=== PATIENT | female | born 1955 | race Caucasian/White ===

== ENCOUNTER 2019-09-13 13:01 | Outpatient (CLI) | payer MEDICARE, OTHER, SELFPAY ==
--- NOTE | ~2019-09-13 | CT_ITS ---
EXAMINATION: CT hip LT wo con DATE: 09/13/2019 13:22 INDICATION: Left hip pain TECHNIQUE: High resolution computed tomography (CT) of the left hip was performed without intravenous contrast. Additional sagittal and coronal reconstructions were performed. Automated exposure control and iterative reconstruction technique were employed. The dose-length product was 561.17 mGy-cm. COMPARISON: Hip radiographs dated between 05/31/2019 and 08/24/2018 FINDINGS: Again seen are 3 lag screws spanning a nondisplaced subcapital fracture of the proximal left femur wh ich is in near-anatomic alignment. Screws appear intact and there is no surrounding lucency to sugges t loosening or infection. No acute fracture. Left hip joint space appears relatively preserved with n o evident left hip joint effusion. Mild subcutaneous scarring lateral to the proximal femur. Surround ing soft tissues are otherwise unremarkable with no evident bursal fluid collections to suggest bursi tis. The uterus is not identified and has likely been surgically resected. Suture line in the left ad nexa suggesting associated left oophorectomy. A small thickening along the sigmoid colon which is lik shar due to decompressed state with no surrounding inflammatory stranding to suggest colitis. Partiall y decompressed bladder is normal. No pathologically enlarged left pelvic or inguinal lymphadenopathy. IMPRESSION: 1. Lag screw fixation of a healed nondisplaced left femoral subcapital fracture which is in near-omid omic alignment with normal left hip joint space, no joint effusion or evident acute osseous abnormali ty. Reviewed, dictated and finalized at location A. ITIAN CHIEF IMPRESSION: 1. Lag screw fixation of a healed nondisplaced left femoral subcapital fracture which is in near-anatomic alignment with normal left hip joint space, no joint effusion or evident acute osseous abnormality.
[2019-09-13 14:24] LABS: Thyroid Stimulating Hormone 0.37 uIU/mL (0.36-3.74)
[2019-09-15 20:53] LABS: Fructosamine 310 umol/L (205-285)
== END 2019-09-13 13:02 | disposition home or self-care (01) ==
PROVIDERS: PCP Internal Medicine; Visit Provider Orthopaedic Surgery
DX: E03.8 Other specified hypothyroidism (principal); E10.65 Type 1 diabetes mellitus with hyperglycemia; M25.552 Pain in left hip
CPT/HCPCS: 36415; 73700; 82985; 84439; 84443

== ENCOUNTER 2019-09-20 09:05 | Outpatient (CLI) | payer MEDICARE, OTHER, SELFPAY ==
--- NOTE | ~2019-09-20 | XR_ITS ---
EXAMINATION: XR hip LT min 2V DATE: 09/20/2019 09:28 INDICATION: Left hip pain. TECHNIQUE: 3 views of left hip were obtained. COMPARISON: Left hip radiographs 05/31/2019, 07/27/2018 FINDINGS: There is a healed transcervical fracture of left femoral neck with internal fixation with 3 lag screws. No acute fracture. There is mild left hip osteoarthritis. There is a staple line in left pelvis. IMPRESSION: 1. Mild left hip osteoarthritis. Reviewed, dictated and finalized at location A. FITS PROCESSOR
== END 2019-09-20 09:06 | disposition home or self-care (01) ==
PROVIDERS: PCP Internal Medicine; Visit Provider Orthopaedic Surgery
DX: Z47.89 Encounter for other orthopedic aftercare (principal)
CPT/HCPCS: 73502

== ENCOUNTER 2019-10-04 12:51 | Outpatient (CLI) | payer MEDICARE, OTHER, SELFPAY ==
--- NOTE | ~2019-10-04 | XR_ITS ---
EXAMINATION: XR lg joint inject/asp w image DATE: 10/04/2019 13:40 INDICATION: Left hip osteoarthritis presenting with left hip pain TECHNIQUE: A time-out was performed to verify the patient's name, date of , and procedure to b e performed. The procedure including the risks, benefits, and alternatives was discussed with the pat ient. Risks discussed included bleeding and infection. The patient understood the risks and agreed to proceed. The skin overlying the left hip joint was prepped and draped in usual sterile fashion. An esthetic was administered with 1% lidocaine subcutaneously. A 22 G needle was advanced under fluoros copic guidance into the joint. Injection of 0.6 mL of Omnipaque 240 confirmed intra-articular positi on of the needle. Subsequently millimeter of a 2:1 mixture of 0.5% Marcaine: 80 mg/mL Depo-Medrol fo r a total dosage of 80 mg Depo-Medrol was instilled. Washout of contrast was seen confirming intra-ar ticular administration. The needle was removed and the entry site was cleaned and dressed. There wer e no immediate complications. Fluoroscopy exposure time was 0.1 minutes. The total number of images w as 2. FINDINGS: Real-time fluoroscopy demonstrates the needle in the left hip joint. Patient's pain prior t o procedure:10/10. Patient's pain following the procedure: 0/10. 3 lag screws are seen for fixation of a prior left femoral subcapital fracture which is in near-anatomic alignment. IMPRESSION: 1. Left hip injection of local anesthetic and steroid with decrease in the patient's presenting pain. Reviewed, dictated and finalized at location A. IMPRESSION: 1. Left hip injection of local anesthetic and steroid with decrease in the kenny ent's presenting pain.
== END 2019-10-04 12:52 | disposition home or self-care (01) ==
PROVIDERS: PCP Internal Medicine; Visit Provider Orthopaedic Surgery
DX: M16.12 Unilateral primary osteoarthritis, left hip (principal)
CPT/HCPCS: 20610; 77002; J1040; Q9966

== ENCOUNTER 2019-10-06 10:55 | Outpatient (CLI) | payer MEDICARE, OTHER, SELFPAY ==
--- NOTE | ~2019-10-06 | XR_ITS ---
EXAMINATION: XR chest 2V DATE: 10/06/2019 11:30 INDICATION: Lower respiratory tract infection. Cough. Shortness of breath, weakness and lethargy. TECHNIQUE: PA and lateral views of the chest were obtained. COMPARISON: Chest radiograph dated 07/06/2018 FINDINGS: The lungs remain clear with no focal airspace opacities, pulmonary edema, pleural effusion or pneumot horax. The cardiomediastinal silhouette is normal. Minimal peripheral calcification along bilateral b reast implants. Atherosclerotic calcification is along the abdominal aorta. IMPRESSION: 1. No acute cardiopulmonary disease. Reviewed, dictated and finalized at location A.
== END 2019-10-06 10:56 | disposition home or self-care (01) ==
LOC: CHSIMG 11:07
PROVIDERS: PCP Internal Medicine
DX: J22 Unspecified acute lower respiratory infection (principal)
CPT/HCPCS: 71046

== ENCOUNTER 2019-10-22 14:13 | Outpatient (CLI) | payer MEDICARE, SELFPAY ==
[2019-10-22 14:43] LABS: Basophils Absolute Auto 0.04 K/mm3 (0.00-0.10); Basophils Percent Auto 0.6 % (0.0-1.0); Eosinophils Absolute Auto 0.21 K/mm3 (0.02-0.50); Eosinophils Percent Auto 3.4 % (1.0-6.0); Hematocrit 43.5 % (35.0-49.0); Hemoglobin 13.8 g/dL (12.0-15.0); Immature Granulocyte Absolute 0.02 K/mm3 (0.00-0.00); Immature Granulocyte Percent A 0.3 % (0.0-0.0); Lymphocytes Absolute Auto 0.72 K/mm3 (1.10-4.50); Lymphocytes Percent Auto 11.6 % (18.0-42.0); Mean Corpuscular HGB Conc 31.7 g/dL (32.0-36.0); Mean Corpuscular Hemoglobin 29.4 pg (27.0-31.0); Mean Corpuscular Volume 92.6 fL (78.0-102.0); Monocytes Absolute Auto 0.28 K/mm3 (0.10-0.90); Monocytes Percent Auto 4.5 % (2.0-11.0); Neutrophils Absolute Auto 4.9 K/mm3 (1.7-7.2); Neutrophils Percent Auto 79.6 % (50.0-70.0); Platelet Count Result 231 K/mm3 (150-420); Red Cell Distribution Width 13.2 % (11.6-14.4); White Blood Count 6.2 K/mm3 (4.8-10.8)
[2019-10-22 14:56] LABS: Add Urine Microscopic? YES; Appearance Urine Clear (Clear); Bilirubin Urine 1+ (Negative); Blood Urine Negative (Negative); Color Urine Yellow (Yellow); Glucose Urine UA 1+ (Negative); Ketones Urine Trace (Negative); Leukocyte Esterase Ur Negative LEU/UL (Negative); Nitrate Urine Negative (Negative); Protein Urine 2+ (Negative); Specific Grav Ur >= 1.030 (1.010-1.020); Urobilinogen Urine 0.2 mg/dL (0.2-1.0); pH Urine 5.5 (5.0-8.0)
[2019-10-22 15:06] LABS: RBC Urine 0-2 /hpf (0-2)
[2019-10-22 15:07] LABS: Bacteria Urine 4+ /hpf; Squamous Epithelial Cell Urine Many /hpf (Few)
[2019-10-22 15:44] LABS: Alanine Aminotransferase 40 U/L (14-59); Albumin Level 3.6 g/dL (3.4-5.0); Alkaline Phosphatase 66 U/L (46-116); Anion Gap 12.6 mmol/L (7-16); Aspartate Amino Transferase 46 U/L (15-37); Bilirubin,Total 0.3 mg/dL (0.00-1.00); Blood Urea Nitrogen 15 mg/dL (7-18); Carbon Dioxide 30 mmol/L (21-32); Chloride 105 mmol/L (98-108); Estimated Glomerular Filt Rate 53; Glucose 209 mg/dL (70-99); Osmolality Calculated 302 mOsm/kg (285-295); Potassium 4.6 mmol/L (3.5-5.1); Sodium 143 mmol/L (136-145); Total Protein 6.6 g/dL (6.4-8.2)
[2019-10-22 15:45] LABS: CRP < 0.0 mg/dL (0.0-0.9)
[2019-10-22 15:50] LABS: Erythrocyte Sedimentation Rate 15 mm/hr (0-20)
[2019-10-25 10:25] LABS: Complement C3 124 mg/dL (83-193)
== END 2019-10-22 14:14 | disposition home or self-care (01) ==
PROVIDERS: PCP Internal Medicine
DX: M19.90 Unspecified osteoarthritis, unspecified site (principal); Z79.899 Other long term (current) drug therapy
CPT/HCPCS: 36415; 80053; 81001; 83516; 85025; 85652; 86140; 86160; 86225

== ENCOUNTER 2019-12-24 09:38 | Outpatient (CLI) | payer MEDICARE, SELFPAY ==
[2019-12-24 09:52] LABS: Basophils Absolute Auto 0.06 K/mm3 (0.00-0.10); Basophils Percent Auto 1.4 % (0.0-1.0); Eosinophils Absolute Auto 0.05 K/mm3 (0.02-0.50); Eosinophils Percent Auto 1.2 % (1.0-6.0); Hematocrit 40.3 % (35.0-49.0); Hemoglobin 12.7 g/dL (12.0-15.0); Immature Granulocyte Absolute 0.01 K/mm3 (0.00-0.00); Immature Granulocyte Percent A 0.2 % (0.0-0.0); Lymphocytes Absolute Auto 1.27 K/mm3 (1.10-4.50); Mean Corpuscular HGB Conc 31.5 g/dL (32.0-36.0); Mean Corpuscular Hemoglobin 29.1 pg (27.0-31.0); Mean Corpuscular Volume 92.2 fL (78.0-102.0); Mean Platelet Volume 11.1 fl (9.2-11.8); Monocytes Absolute Auto 0.62 K/mm3 (0.10-0.90); Monocytes Percent Auto 14.6 % (2.0-11.0); Neutrophils Absolute Auto 2.2 K/mm3 (1.7-7.2); Neutrophils Percent Auto 52.6 % (50.0-70.0); Platelet Count Result 251 K/mm3 (150-420); Red Blood Count 4.37 M/mm3 (4.20-5.40); Red Cell Distribution Width 14.1 % (11.6-14.4); White Blood Count 4.2 K/mm3 (4.8-10.8)
[2019-12-24 11:08] LABS: Cholesterol 136 mg/dL (0-200); Ferritin 16 ng/mL (8-252); Free T4 Free Thyroxine 1.13 ng/dL (0.76-1.46); HDL Direct 82 mg/dL (40-60); LDL Cholesterol Calculated 43 mg/dL (<130); Thyroid Stimulating Hormone 0.09 uIU/mL (0.36-3.74); Triglycerides 55 mg/dL (0-150)
== END 2019-12-24 09:39 | disposition home or self-care (01) ==
LOC: CHSLAB 09:42
PROVIDERS: PCP Internal Medicine; Visit Provider Internal Medicine
DX: D50.8 Other iron deficiency anemias (principal); E10.65 Type 1 diabetes mellitus with hyperglycemia; E03.8 Other specified hypothyroidism
CPT/HCPCS: 36415; 80061; 82728; 82985; 84439; 84443; 85025

== ENCOUNTER 2020-03-16 13:34 | Outpatient (CLI) | payer MEDICARE, SELFPAY ==
[2020-03-16 14:06] LABS: Basophils Absolute Auto 0.07 K/mm3 (0.00-0.10); Basophils Percent Auto 1.7 % (0.0-1.0); Eosinophils Absolute Auto 0.03 K/mm3 (0.02-0.50); Eosinophils Percent Auto 0.7 % (1.0-6.0); Hematocrit 41.3 % (35.0-49.0); Hemoglobin 12.8 g/dL (12.0-15.0); Immature Granulocyte Absolute 0.02 K/mm3 (0.00-0.00); Immature Granulocyte Percent A 0.5 % (0.0-0.0); Lymphocytes Percent Auto 27.4 % (18.0-42.0); Mean Corpuscular Volume 93.4 fL (78.0-102.0); Mean Platelet Volume 11.6 fl (9.2-11.8); Monocytes Absolute Auto 0.46 K/mm3 (0.10-0.90); Monocytes Percent Auto 11.4 % (2.0-11.0); Neutrophils Absolute Auto 2.3 K/mm3 (1.7-7.2); Neutrophils Percent Auto 58.3 % (50.0-70.0); Platelet Count Result 244 K/mm3 (150-420); Red Blood Count 4.42 M/mm3 (4.20-5.40); Red Cell Distribution Width 13.4 % (11.6-14.4)
[2020-03-16 14:42] LABS: Alanine Aminotransferase 35 U/L (14-59); Albumin Level 3.5 g/dL (3.4-5.0); Alkaline Phosphatase 73 U/L (46-116); Anion Gap 8 mmol/L (8-16); Aspartate Amino Transferase 41 U/L (15-37); Bilirubin,Total 0.3 mg/dL (0.00-1.00); Blood Urea Nitrogen 14 mg/dL (7-18); Calcium 8.5 mg/dL (8.5-10.1); Carbon Dioxide 27 mmol/L (21-32); Chloride 106 mmol/L (98-108); Estimated Glomerular Filt Rate > 60; Free T4 Free Thyroxine 1.14 ng/dL (0.76-1.46); Glucose 198 mg/dL (70-99); Osmolality Calculated 298 mOsm/kg (285-295); Potassium 4.8 mmol/L (3.5-5.1); Sodium 141 mmol/L (136-145); Thyroid Stimulating Hormone 0.15 uIU/mL (0.36-3.74); Total Protein 6.8 g/dL (6.4-8.2)
[2020-03-16 14:51] LABS: CRP < 0.2 mg/dL (0.0-0.9)
[2020-03-16 15:08] LABS: Erythrocyte Sedimentation Rate 20 mm/hr (0-20)
[2020-03-19 19:34] LABS: Fructosamine 308 umol/L (205-285)
== END 2020-03-16 13:35 | disposition home or self-care (01) ==
PROVIDERS: PCP Internal Medicine; Visit Provider Internal Medicine
DX: M19.90 Unspecified osteoarthritis, unspecified site (principal); Z79.899 Other long term (current) drug therapy; E10.649 Type 1 diabetes mellitus with hypoglycemia without coma
CPT/HCPCS: 36415; 80053; 82985; 84439; 84443; 85025; 85652; 86140

== ENCOUNTER 2020-06-14 12:52 | Outpatient (CLI) | payer MEDICARE, OTHER, SELFPAY ==
--- NOTE | ~2020-06-14 | XR_ITS ---
CORRECTED REPORT order correction 06/19/2020 [facility] XR lg joint inject/aspiration w image DATE: 06/14/2020 14:40 INDICATION: Left hip pain, arthritis. TECHNIQUE: The purpose of the procedure, technique and potential complications were discussed with the patient. The patient verbalized understanding and gave consent. Timeout procedure was performed. The skin over the anterolateral aspect of the proximal left thigh was prepared with sterile solution. Sterile drape was applied. 1% lidocaine local anesthetic was administered to the skin and underlying subcutaneous tissues. A 20-gauge spinal needle was introduced into the right hip joint space with fluoroscopic guidance. Test injection of Omnipaque 240 contrast material revealed intra-articular position of the needle tip at the right hip joint. Subsequently, 2 cc of 0.5% Marcaine and 80 mg Depo-Medrol was injected uneventfully into the right hip joint. The patient tolerated the procedure well, without apparent complication. IMPRESSION: Fluoroscopically guided left hip intra-articular injection of 2 cc 0.5% Marcaine and 80 mg Depo-Medrol Reviewed, dictated and finalized at Location A. Reviewed, dictated and finalized at location A. IVES SPECIALIST JOSE
== END 2020-06-14 12:53 | disposition home or self-care (01) ==
LOC: CHSIMG 12:54
PROVIDERS: PCP Internal Medicine; Visit Provider Orthopaedic Surgery
DX: M16.12 Unilateral primary osteoarthritis, left hip (principal)
CPT/HCPCS: 20610; 77002; J1030; Q9965

== ENCOUNTER 2020-07-18 11:47 | Outpatient (CLI) | payer MEDICARE, SELFPAY ==
[2020-07-18 12:18] LABS: Add Urine Microscopic? YES; Appearance Urine Clear (Clear); Bilirubin Urine Negative (Negative); Blood Urine Negative (Negative); Color Urine Yellow (Yellow); Glucose Urine UA 3+ (Negative); Ketones Urine Negative (Negative); Leukocyte Esterase Ur Negative LEU/UL (Negative); Nitrate Urine Negative (Negative); Protein Urine Negative (Negative); Specific Grav Ur >= 1.030 (1.010-1.020); Urobilinogen Urine 0.2 mg/dL (0.2-1.0); pH Urine 5.5 (5.0-8.0)
[2020-07-18 12:25] LABS: Bacteria Urine 2+ /hpf; Mucus Urine Few /lpf; RBC Urine 0-2 /hpf (0-2); Squamous Epithelial Cell Urine Moderate /hpf (Few); WBC Urine 0-3 /hpf (0-3)
[2020-07-18 12:48] LABS: Creatinine Urine 149.54 mg/dL (40-278); MALB Creatinine Ratio 8.6 mg/g (0-30); Microalbumin Urine Random < 13.0 mg/L
[2020-07-18 13:23] LABS: Free T4 Free Thyroxine 1.07 ng/dL (0.76-1.46); Thyroid Stimulating Hormone 0.09 uIU/mL (0.36-3.74); Vitamin B12 327 pg/mL (193-986)
[2020-07-20 13:45] LABS: Complement C3 121 mg/dL (83-193)
[2020-07-20 14:04] LABS: RPR Screen Non-Reactive (Non-Reactive)
[2020-07-22 01:12] LABS: Albumin 4.1 g/dL (3.8-4.8); Alpha 1 Globulin 0.3 g/dL (0.2-0.3); Alpha 2 Globulin 0.7 g/dL (0.5-0.9); Beta 1 Globulin 0.6 g/dL (0.4-0.6)
[2020-07-22 10:20] LABS: Vitamin B1 <6 nmol/L (8-30)
[2020-07-22 12:46] LABS: Fructosamine 312 umol/L (205-285)
[2020-07-25 07:01] LABS: Creatinine, Random Urine 128 mg/dL (20-275); Total Protein/Creatinine Ratio 109 mg/g creat (21-161)
[2020-07-25 09:22] LABS: NIL 0.02; Quantiferon TB Plus, 1T Negative
== END 2020-07-18 11:48 | disposition home or self-care (01) ==
PROVIDERS: PCP Internal Medicine
DX: M19.90 Unspecified osteoarthritis, unspecified site (principal); Z79.899 Other long term (current) drug therapy; R61 Generalized hyperhidrosis; E03.8 Other specified hypothyroidism; E10.40 Type 1 diabetes mellitus with diabetic neuropathy, unspecified
CPT/HCPCS: 36415; 81001; 82043; 82570; 82607; 82985; 84155; 84156; 84165; 84166; 84425; 84439; 84443; 86160; 86225; 86335; 86480; 86592

== ENCOUNTER 2020-09-18 08:13 | Outpatient (CLI) | payer MEDICARE, OTHER, SELFPAY ==
--- NOTE | ~2020-09-18 | XR_ITS ---
EXAMINATION: XR hip LT min 2V DATE: 09/18/2020 08:58 INDICATION: Several months of left hip pain TECHNIQUE: Anteroposterior , frog leg and cross-table lateral views of the left hip were obtained. COMPARISON: Left hip radiographs dated 09/20/[address] dated 09/13/2019 FINDINGS: Progressive healing of a transcervical fracture of the proximal left femur which remains fixed with 3 cannulated lag screws with remodeling of the inferior cortex and near complete resolution of the the prior mild residual linear lucency along the fracture plane. Alignment remains essentially anatomic. No acute fractures identified. Minimal left hip osteoarthritis. Postoperative changes with suture li chinmay in the left and right hemipelvis. Multiple phleboliths in the pelvis. Atherosclerotic calcific a cyst along the proximal left thigh. Small heterotopic ossicle at the left buttock. Partially visualiz ed left common iliac artery stent. IMPRESSION: 1. Chronic healed transcervical fracture of the proximal femur with lag screw fixation. No acute osse ous abnormality. 2. Minimal left hip osteoarthritis. Reviewed, dictated and finalized at location B. S OPERATIONS SPECIALIST IMPRESSION: 1. Chronic healed transcervical fracture of the proximal femur with lag screw f ixation. No acute osseous abnormality. 2. Minimal left hip osteoarthritis.
== END 2020-09-18 08:14 | disposition home or self-care (01) ==
PROVIDERS: PCP Internal Medicine; Visit Provider Orthopaedic Surgery
DX: M25.552 Pain in left hip (principal)
CPT/HCPCS: 73502

== ENCOUNTER 2020-10-27 13:30 | Outpatient (CLI) | payer MEDICARE, OTHER, SELFPAY ==
--- NOTE | ~2020-10-27 | XR_ITS ---
EXAMINATION: XR lg joint inject/asp w image DATE: 10/27/2020 14:08 INDICATION: Left hip arthritis. TECHNIQUE: A time-out was performed to verify the patient's name, date of , and procedure to b e performed. The procedure including the risks, benefits, and alternatives was discussed with the pat ient. Risks discussed included bleeding and infection. The patient understood the risks and agreed to proceed. The skin overlying the left hip joint was prepped and draped in usual sterile fashion. An esthetic was administered with 1% lidocaine subcutaneously. A 22 G needle was advanced under fluoros copic guidance into the joint. Injection of 1 mL of Omnipaque 240 confirmed intra-articular position of the needle. Subsequently, injectate consisting of 2 mL 0.5% bupivacaine and 1 mL 80 mg/L Depo-Me drol was instilled. The needle was removed and the entry site was cleaned and dressed. There were n o immediate complications. Fluoroscopy exposure time was 0.1 minutes. The total number of images was 2. FINDINGS: Real-time fluoroscopy demonstrates the needle in the left hip joint. There are 3 lag screws in the proximal femur. Patient's pain prior to procedure:04/29. Patient's pain following the proced ure: 07/30. IMPRESSION: 1. Fluoroscopy guided left hip joint injection of local anesthetic and steroid with decrease in the p atient's presenting pain. Reviewed, dictated and finalized at location A. IMPRESSION: 1. Fluoroscopy guided left hip joint injection of local anesthetic and steroid with decrease in the patient's presenting pain.
== END 2020-10-27 13:31 | disposition home or self-care (01) ==
LOC: ANHIMG 13:36
PROVIDERS: PCP Internal Medicine; Visit Provider Orthopaedic Surgery
DX: M16.12 Unilateral primary osteoarthritis, left hip (principal)
CPT/HCPCS: 20610; 77002; J1040; Q9966

== ENCOUNTER 2020-11-20 10:22 | Outpatient (CLI) | payer MEDICARE, OTHER, SELFPAY ==
--- NOTE | ~2020-11-20 | MM_ITS ---
EXAMINATION: MM scrn fernando implant BI w ольга HISTORY: Screening mammogram TECHNIQUE: Craniocaudal and mediolateral oblique 3-D tomosynthesis images with implant displacement a nd synthetic 2-D images were generated. Craniocaudal and mediolateral oblique views of the breasts wi thout implant displacement were obtained using full field digital mammography. CAD analysis was submi tted and interpreted. COMPARISON: Comparison to multiple prior studies sequentially, with oldest reviewed study dated 11/2011. BREAST PARENCHYMAL COMPOSITION: The breasts are extremely dense, which lowers the sensitivity of mamm ography. FINDINGS: There are bilateral subpectoral saline implants. There is no evidence of suspicious mass, c alcification, or architectural distortion to suggest malignancy in either breast. There has been no s uspicious interval change. IMPRESSION: 1. No mammographic evidence of malignancy. 2. Recommend routine screening mammography in one year. BI-RADS Category 1: Negative Reviewed, dictated and finalized at location A.
== END 2020-11-20 10:23 | disposition home or self-care (01) ==
LOC: ANHIMG 10:26
PROVIDERS: Family Provider Internal Medicine Endocrinology, Diabetes & Metabolism; PCP Internal Medicine; Visit Provider Obstetrics & Gynecology
DX: Z12.31 Encounter for screening mammogram for malignant neoplasm of breast (principal)
CPT/HCPCS: 77063; 77067

== ENCOUNTER 2020-12-27 10:58 | Outpatient (CLI) | payer MEDICARE, SELFPAY ==
[2020-12-27 11:38] LABS: Appearance Urine Sl Cloudy (Clear); Bilirubin Urine Negative (Negative); Blood Urine Negative (Negative); Glucose Urine UA 1+ (Negative); Ketones Urine Negative (Negative); Leukocyte Esterase Ur Negative LEU/UL (Negative); Nitrate Urine Negative (Negative); Protein Urine Negative (Negative); Specific Grav Ur >= 1.030 (1.010-1.020); Urobilinogen Urine 0.2 mg/dL (0.2-1.0); pH Urine 5.5 (5.0-8.0)
[2020-12-27 11:43] LABS: Add Urine Microscopic? YES; Bacteria Urine 2+ /hpf; Color Urine Light Yellow (Yellow); Mucus Urine Few /lpf; RBC Urine None seen /hpf (0-2); Squamous Epithelial Cell Urine Few /hpf (Few); WBC Urine None seen /hpf (0-3)
[2020-12-27 11:53] LABS: Hemoglobin A1C 7.5 % (<5.7)
[2020-12-27 11:54] LABS: MALB Creatinine Ratio 9.6 mg/g (0-30); Microalbumin Urine Random < 13.0 mg/L
[2020-12-27 12:31] LABS: Alanine Aminotransferase 31 U/L (14-59); Albumin Level 3.5 g/dL (3.4-5.0); Alkaline Phosphatase 67 U/L (46-116); Anion Gap 8 mmol/L (8-16); Aspartate Amino Transferase 40 U/L (15-37); Bilirubin,Total 0.4 mg/dL (0.00-1.00); Blood Urea Nitrogen 18 mg/dL (7-18); Calcium 8.9 mg/dL (8.5-10.1); Carbon Dioxide 30 mmol/L (21-32); Chloride 106 mmol/L (98-108); Cholesterol 132 mg/dL (0-200); Estimated Glomerular Filt Rate 55; Free T4 Free Thyroxine 0.98 ng/dL (0.76-1.46); Glucose 151 mg/dL (70-99); HDL Direct 78 mg/dL (40-60); LDL Cholesterol Calculated 43 mg/dL (<130); Osmolality Calculated 302 mOsm/kg (285-295); Potassium 5.1 mmol/L (3.5-5.1); Sodium 144 mmol/L (136-145); Total Protein 6.5 g/dL (6.4-8.2); Triglycerides 56 mg/dL (0-150)
[2020-12-29 13:44] LABS: Vitamin D 25 Hydroxy 42 ng/mL (30-100)
[2021-01-02 06:46] LABS: Fructosamine 309 umol/L (205-285)
[2021-01-03 12:24] LABS: Vitamin B1 318 nmol/L (8-30)
== END 2020-12-27 10:59 | disposition home or self-care (01) ==
LOC: CHSLAB 11:01
PROVIDERS: PCP Internal Medicine; Visit Provider Internal Medicine
DX: E03.8 Other specified hypothyroidism (principal); E10.65 Type 1 diabetes mellitus with hyperglycemia; D50.9 Iron deficiency anemia, unspecified; M85.80 Other specified disorders of bone density and structure, unspecified site
CPT/HCPCS: 36415; 80053; 80061; 81001; 82043; 82306; 82985; 83036; 84425; 84439; 84443

== ENCOUNTER 2021-01-17 11:01 | Outpatient (RCR) | payer MEDICARE, OTHER, SELFPAY ==
--- NOTE | 2021-01-17 11:49 | PTOPEVAL ---
Thank you for referring Bettye Thrasher to [facility].? The patient is scheduled to be seen for therapy? __3__x/week for 12 visits. Please review, sign, date and return this plan of care DANIELE. I agree with and certify that the following plan of care is medically necessary. Referring Physician Date Admitting Provider: Attending Provider: MARY LOVE Referring Provider: *PT Outpatient Evaluation Start: 01/17/21 11:00 Freq: Status: Active Protocol: Document 01/17/21 11:00 DREW (Rec: 01/17/21 11:48 DREW [email or web address]) Therapy Assessment Status Assessment Status Assessment Status Evaluation Evaluation Information Problem Diagnosis impaired balance, unsteady gait Onset 07/21/20 Subjective Information Pt. reports that she has Query Text:As Reported By Patient/ noticed difficulty with Family maintaining her balance as of recently. She states that she notices herself falling to the left mostly. She states that she has fallen 3x in the past 6 months. She recalls tripping up her steps and she has stumbled over her dog. She states that her vision seems to be off and has difficulty judging distance. She reports that her goal for therapy is to improve her balance. Prior Level of Function Activity Level (Last 3 Months) Occupation disabled Hand Dominance Right Activity of Daily Living Ability Independent Indoor/Home Mobility Independent Community Mobility Independent Stairs Ability Independent Functional Cognition (Planning, Shopping Independent , Taking Medications) Cooking Yes Cleaning Yes Laundry Yes Shopping Yes Driving Yes Pain Assessment Timing of Pain Assessment Timing of Pain Assessment Pre-Treatment Pain Scale Pain Scale Used Numeric (1 - 10) Self Report Pain Assessment Left Hip(s) Reported Pain Level 3 Pain Description Aching Other Pain Aggravating Factors laying on the left hip Pain Score Pain Score 3: Self Report Interventions Used Interventions Used By Clinicians Activity or ADL's,Exercise Lower Extremity Muscle Strength Testing General Lower Extremity Strength Gross Lower Extremity Streng
--- NOTE | 2021-02-26 13:53 | PTOPEVAL ---
Thank you for referring Bettye Thrasher to [facility] The patient is scheduled to be seen for therapy? __2__x/week for 4 visits. Please review, sign, date and return this plan of care DANIELE. I agree with and certify that the following plan of care is medically necessary. Referring Physician Date Admitting Provider: Attending Provider: MARY LOVE Referring Provider: *PT Outpatient Evaluation Start: 01/17/21 11:00 Freq: Status: Active Protocol: Document 02/26/21 13:05 DREW (Rec: 02/26/21 13:52 DREW [id number]) Outpatient Past Medical History Neurological History Hx Other Neurological Disorders Yes: DIABETIC NEUROPATHY Cardiovascular History Hx Hypertension Yes Respiratory History Hx Respiratory Disorders No Significant History Gastrointestinal History Hx Gastrointestinal Disorders No Significant History Genitourinary History Hx Genitourinary Disorders No Significant History Musculoskeletal History Hx Fractures Yes: S/O LT HIP FX 2018 Hematological History Hx Hematological Disorders No Significant History Endocrine History Hx Diabetes Yes Hx Insulin Pump Yes Hx Systemic Lupus Erythematosus Yes: POSSIBLE, RAYNAUD'S SJOGREN'S Hx Other Endocrine Disorders Yes: AUTOIMMUNE THYROIDITIS HEENT History Hx Glaucoma Yes Hx Dental Problems Yes: ADENTUALOUS Hx Other HEENT Disorders Yes: DIABETIC RETINOPATHY Integumentary History Hx Skin Disorders No Significant History Reproductive History Hx Reproductive Disorders No Significant History Psychosocial History Hx Psychiatric Disorders No Significant History Pain History Has Past Pain Affected Your Daily Life Yes: LT HIP PAIN Anesthesia History Hx Anesthesia Reactions No Significant History Evaluation Information Problem Subjective Information Pt. reports that she had pins Query Text:As Reported By Patient/ removed from her hip 1 07/22 Family weeks ago. She skipped last week of rehab due to the procedure. She reports she has been doing exercise at home. She reports she still notes balance issues, but has noticed less episodes of LOB. Pt. request to continue with PT to improve her strength. Pain Assessment Timing of Pain Assessment Timing of Pain Assessment Pre-Treatment Pain Scale Pain Scale Used Numeric (1 - 10) Self Report Pain Assessment Left Hip(s) Reported Pain Level 3 Pain Score Pain Score 3: Self Report Interventions Used Interventions Used
== END 2021-03-12 14:52 | disposition home or self-care (01) ==
LOC: CHSPT 11:01
PROVIDERS: PCP Internal Medicine
DX: R42 Dizziness and giddiness (principal)
CPT/HCPCS: 97110; 97112; 97161; 97530

== ENCOUNTER 2021-02-15 01:17 | Day surgery (SDC) | payer MEDICARE, OTHER, SELFPAY ==
[2021-02-13 08:25] VITALS: BMI 18.7
--- NOTE | 2021-02-14 10:22 | WPDANESEPPF ---
Anes - Initial Pre Proc Eval Procedure: Operation Date: 02/15/21 07:30 Proposed Procedures p Left Hip Removal of Hardware - Omar Cummins MD Date/Time: 02/14/21 10:22 Surgeon: Omar Cummins MD Pre Op Diagnosis: left hip painful hardware Patient Data Age: 65 Gender: F Height: 1.6 m Weight: 48 kg Allergies Allergy/AdvReac Type Severity Reaction Status Date / Time No Known Allergies Allergy Verified 02/15/21 06:15 Home Medications Medication Instructions Recorded Confirmed Type amlodipine [Norvasc] 10 mg PO DAILY 02/13/21 02/15/21 History aspirin [Adult Aspirin Regimen] 81 mg PO DAILY 02/13/21 02/15/21 History atorvastatin 20 mg PO DAILY 02/13/21 02/15/21 History calcium carbonate-vitamin D3 1 tablet PO DAILY 02/13/21 02/15/21 History [Calcium 600 with Vitamin D3] cyanocobalamin (vitamin B-12) 500 mcg PO DAILY 02/13/21 02/15/21 History cyclosporine [Restasis] 1 drp EACH EYE Q12H 02/13/21 02/15/21 History estradiol-norethindrone acet 1 tablet PO DAILY 02/13/21 02/15/21 History hydroxychloroquine 200 mg PO DAILY 02/13/21 02/15/21 History insulin lispro [Humalog U-100 1 sliding scale dose SUBCUT 02/13/21 02/15/21 History Insulin] USEASDIRECTD insulin pump controller 02/13/21 02/13/21 History ipratropium bromide 2 spray INTRANASAL BID 02/13/21 02/15/21 History latanoprost 1 drp EACH EYE QPM 02/13/21 02/15/21 History levothyroxine 112 mcg PO DAILY 02/13/21 02/15/21 History lisinopril 5 mg PO DAILY 02/13/21 02/15/21 History lorazepam 0.5 mg PO DAILY PRN 02/13/21 02/15/21 History metoprolol succinate 50 mg PO DAILY 02/13/21 02/15/21 History sertraline 100 mg PO DAILY 02/13/21 02/15/21 History Patient hx anesthesia problems: none Family hx anesthesia problems: none [facility] Past Medical History Medical History (Updated 02/14/21 @ 10:23 by Agustín Fleming DO) Aftercare following surgery of the musculoskeletal system Arthritis of hip Autoimmune thyroiditis Diabetes type 2, controlled Diabetic neuropathy Diabetic retinopathy Insulin pump in place Painful orthopaedic hardware SLE (systemic lupus erythematosus related syndrome) Surgical History Surgical History History of hip surgery Social History Social History Smoking packs per day: 1.5 Smoking cigarettes per day: 30.0 Years smoked: 40 Smoking pack-years: 60.00 Smoking status: Former smoker Smoking end date: 07/21/13 Alcohol intake: current Substance use: never Last use: 2012 Living arrangements: with family Gender identity (if verbalized by the patient): Female Sexual Orientation (if Verbalized by the Patient): Straight or Heterosexual Spiritual care concerns: No Anes - Eval Final PreProcedure Day of Procedure 02/14/21 10:22 Patient weight: thin Heart: regular rate and rhythm Lungs: clear to auscultation and normal air movement Airway: Mallampati scale class II Neurological: alert and oriented Last oral intake: >/= 8 hours ASA classification: III Emergent: no Anesthetic plan: proceed Anesthesia type and monitoring: general ETT and standard monitoring Informed Consent: The patient's anesthetic plan and its attendant risks and benefits were discussed with the patient/family/POA. Questions were solicited and answers provided to the satisfaction of the patient/family/POA.
[2021-02-15] VITALS (8 sets, daily range): BP systolic 111–151; BP diastolic 39–85; PULSE 54–60; RESP 10–20; TEMP 36.5–36.8; O2SAT 95–100
--- NOTE | ~2021-02-15 | XR_ITS ---
EXAMINATION: XR surgery orthopedic DATE: 02/15/2021 08:20 INDICATION: Leg screw removal from the proximal left femur for left hip pain. TECHNIQUE: 2 fluoroscopic images of the left hip were obtained in AP and frog-leg lateral positions d uring procedure performed by Dr. Cummins. Radiologist was not present for the imaging or procedure. T he amount of fluoroscopy time used during this procedure was 4.2 minutes. COMPARISON: 01/24/2021 FINDINGS: Interval removal of 3 lag screws from the left femoral head neck with residual lucent screw tracks. N o retained foreign bodies identified. Bone alignment is normal. No fracture. Left hip joint space is normal. Small marginal osteophytes along the femoral head. IMPRESSION: 1. Expected appearance post removal of 3 lag screws from the proximal left femur. See procedure note for further detail. Reviewed, dictated and finalized at location A. IMPRESSION: 1. Expected appearance post removal of 3 lag screws from the proximal left femu r. See procedure note for further detail.
--- NOTE | 2021-02-15 06:00 | ECG_ITS ---
Measurements Intervals [place] Rate: 56 P: 53 WA: 182 QRS: -54 QRSD: 158 T: 81 QT: 513 QTc: 495 Interpretive Statements SINUS BRADYCARDIA WITH MARKED SINUS ARRHYTHMIA LEFT AXIS DEVIATION LEFT BUNDLE BRANCH BLOCK ABNORMAL ECG Electronically Signed On 02-15-2021 9:39:29 CDT by Toney Oliveira D.O.
[2021-02-15] MEDS: LACTATED RINGERS 1,000 ML 30 ML IV CONT (06:40)
--- NOTE | 2021-02-15 06:55 | WPDHPUPDATE1 ---
History and Physical Update Update Date/Time: 02/15/21 06:55 History and Physical has been reviewed, including an updated exam of the patient. There are NO changes in the patient's condition. Risks, benefits, and alternatives have been discussed and questions answered. Patient agrees to proceed with procedure.
[2021-02-15 07:04] LABS: Glucose Point of Care 271 mg/dl (65-105)
[2021-02-15] MEDS: ACETAMINOPHEN 500 MG TABLET 1000 MG PO (07:20)
[2021-02-15] MEDS: KETOROLAC 15 MG/ML VIAL (*BKC) IV PUSH (07:20)
[2021-02-15] MEDS: ceFAZolin 2 GM/D5W 50 ML 2 GM/50 ML BAG IVPB (07:32)
[2021-02-15] MEDS: BUPIVACAINE HCL 0.5% PF 30 ML VIAL INFILTRATE (08:05)
--- NOTE | 2021-02-15 08:14 | SUR.PREOP ---
0700-PT HAS INSULIN PUMP AND HAS DISCUSSED BLOOD SUGAR WITH DR PLATT AND FOLLOWED HIS INSTRUCTIONS.
--- NOTE | 2021-02-15 08:26 | W.PM.PROC2 ---
Procedure Note - Detailed Date of Procedure 02/15/21 Pre-op Diagnosis left hip painful hardware Post-op Diagnosis same Procedure Performed LT hip hardware removal, deep Surgeon Omar Cummins MD Public Address Announcer 1st Public Address Announcer Anesthesia general Indications 65-year-old woman who is status post left hip pinning for femoral neck fracture. She has pain directly over the hardware that is present. Diagnostic injection successful at pain relief. Radiographs show good healing of the hip fracture. CT scan shows good healing with no evidence of AVN. Patient presents for removal of the hardware from the left hip. Findings Left hip femoral neck fracture well healed, 3 screws removed. Description of Procedure What was done: Patient identified in the preoperative holding. Informed consent given. Operative extremity marked. Patient received intravenous antibiotics. Patient brought to the operating room where underwent general anesthetic by anesthesia team. Positioned supine on operating room table. Time-out performed confirming the patient, site of the surgery and the plan. Left hip prepped and draped in the usual sterile surgical fashion using a ChloraPrep skin solution. Previous lateral hip incision utilized. Local anesthetic with 0.5% Marcaine plain applied. Fifteen blade knife used to make 1 in incision. Dissection carried down through the fascia to the lateral aspect of the femur. Three screws localized and removed with screwdriver. Curette used to debride the screw holes. Image intensification used to confirm removal of all of the hardware and healing of the femoral neck fracture. Wound thoroughly irrigated with solution. Fascia closed with 2 Vicryl interrupted suture. Subcutaneous tissue repaired with 3 0 Monocryl running stitch. Glue used to approximate the skin. The patient was then woken from anesthesia, extubated and taken to the recovery room in stable condition. All sponge, needle, instrument counts were correct at the end of the case. Estimated Blood Loss 5 Drains No Packing No Pathology none sent Complications None Condition stable Disposition PACU
[2021-02-15 08:37] LABS: Glucose Point of Care 189 mg/dl (65-105)
== END 2021-02-15 09:50 | disposition home or self-care (01) ==
PROVIDERS: PCP Internal Medicine; Visit Provider Orthopaedic Surgery
PROC: (CPT 20680; principal; 2021-02-15 07:30)
DX: T84.84XA Pain due to internal orthopedic prosthetic devices, implants and grafts, initial encounter (principal); M25.552 Pain in left hip; S72.002D Fracture of unspecified part of neck of left femur, subsequent encounter for closed fracture with routine healing; X58.XXXD Exposure to other specified factors, subsequent encounter; E06.3 Autoimmune thyroiditis; E11.40 Type 2 diabetes mellitus with diabetic neuropathy, unspecified; E11.319 Type 2 diabetes mellitus with unspecified diabetic retinopathy without macular edema; M32.9 Systemic lupus erythematosus, unspecified; Z79.4 Long term (current) use of insulin; Z96.41 Presence of insulin pump (external) (internal); Z79.82 Long term (current) use of aspirin; Z87.891 Personal history of nicotine dependence
CPT/HCPCS: 20680; 82948; 93005; A9270; J0690; J1885; J2250; J2405; J2704; J3010; J7120

== ENCOUNTER 2021-02-19 08:18 | Outpatient (CLI) | payer MEDICARE, SELFPAY ==
--- NOTE | ~2021-02-19 | XR_ITS ---
XR hip LT 2V w AP pelvis DATE: 02/19/2021 08:47 INDICATION: Left hip pain for days post pin removal TECHNIQUE: AP pelvis. AP and lateral views of left hip COMPARISON: 01/24/2021 left hip FINDINGS: No pelvic fracture or bone destruction. The pubic symphysis and sacroiliac joints are intac t. The tracks of 3 former pins through the intertrochanteric area and femoral neck into the femoral head are observed but the hands are no longer present since 01/24/2021. No recent fracture or dislocation or bone destruction is detected. There is moderate osteoarthritis a t the left hip joint. A stent device overlies the left L4 and L4-5 area. There are calcifications of the iliac and femoral arteries. IMPRESSION: Recent extraction of 3 pins from the left femur, without apparent postoperative acute com plication or fracture Osteoarthritis at the left hip joint Reviewed, dictated and finalized at location B. IMPRESSION: Recent extraction of 3 pins from the left femur, without apparent p ostoperative acute complication or fracture Osteoarthritis at the left hip joint
== END 2021-02-19 08:19 | disposition home or self-care (01) ==
LOC: CHSLAB 08:23
PROVIDERS: PCP Internal Medicine; Visit Provider Orthopaedic Surgery
DX: Z47.89 Encounter for other orthopedic aftercare (principal)
CPT/HCPCS: 73502

== ENCOUNTER 2021-02-22 12:56 | Outpatient (CLI) | payer MEDICARE, SELFPAY ==
--- NOTE | ~2021-02-22 | DEXA_ITS ---
Bone Density Report Name: Bettye Thrasher Age: 65 Sex: Female Ethnicity: White Date of : 1955 Indication: postmenopausal; parental hip fracture; prior fracture; hysterectomy; rheumatoid arthritis; Referring Provider: Dileep, Abdulkadir Study: Bone densitometry was performed. Exam Date: February 22, 2021 Accession number: [id number] Bone Density: Region BMD T-score Z-score Classification AP Spine (L1-L4) 1.104 0.5 2.3 Normal Femoral Neck (Right) 0.579 -2.4 -0.9 Osteopenia Total Hip (Right) 0.825 -1.0 0.3 Normal World Health Organization criteria for BMD impression classify patients as: Normal (T-score at or above -1.0), Osteopenia (T-score between -1.0 and -2.5), or Osteoporosis (T-score at or below -2.5). 10-year Fracture Risk: FRAX not reported because: Prior hip or vertebral fracture Treated for osteoporosis Clinical Information Provided by Patient: Have had a previous hip or vertebral fracture Has had a low trauma fracture Parent has had a hip fracture Has rheumatoid arthritis Is being treated for osteoporosis Has used the following medications: Prolia (i.e. denosumab) Has the following medical conditions: Hysterectomy Patient maximum height was 63 Menopause Age: 48 No regular weight bearing exercise Drinks caffeinated beverages Onset of menses at age 14 Number of children 2 Impression: The patient has low bone mass, based on the Right Femoral Neck T-score. The patient has risk factors, including: parental hip fracture, previous fracture. Discussion: It is important to ask patients whether they are taking their medications and to encourage continued and appropriate compliance with their osteoporosis therapies to reduce fracture risk. It is also important to review their risk factors and encourage appropriate calcium and vitamin D intakes, exercise, fall prevention and other lifestyle measures. Follow-Up: Consider a repeat BMD and Vertebral Fracture Assessment (VFA) exam in 2 years or sooner if medically necessary, to reassess this patient's status. Reported by: YULIANA on 02/22/2021 1:19:00 PM. Reviewed, dictated and finalized at location ARowdy GARCIA
== END 2021-02-22 12:57 | disposition home or self-care (01) ==
LOC: ANHIMG 13:00
PROVIDERS: PCP Internal Medicine; Visit Provider Internal Medicine
DX: M81.0 Age-related osteoporosis without current pathological fracture (principal); M85.851 Other specified disorders of bone density and structure, right thigh
CPT/HCPCS: 77080

== ENCOUNTER 2021-02-23 13:59 | Outpatient (CLI) | payer MEDICARE, SELFPAY ==
[2021-02-23 14:14] LABS: Hematocrit 37.9 % (35.0-49.0); Hemoglobin 11.8 g/dL (12.0-15.0); Immature Platelet Fraction Pct 12.3 % (1.0-7.0); Mean Corpuscular HGB Conc 31.1 g/dL (32.0-36.0); Mean Corpuscular Hemoglobin 28.6 pg (27.0-31.0); Mean Platelet Volume 11.8 fl (9.2-11.8); Platelet Count Result 49 K/mm3 (150-420); Red Blood Count 4.12 M/mm3 (4.20-5.40); Red Cell Distribution Width 13.9 % (11.6-14.4); White Blood Count 3.6 K/mm3 (4.8-10.8)
[2021-02-23 14:54] LABS: Platelet Clumps Present
[2021-02-23 14:55] LABS: Band Neutrophils Percent 0 % (0-6); Basophils Absolute Manual 0.07 K/mm3 (0-0.1); Basophils Percent Manual 2 % (0-1); Eosinophils Percent Manual 3 % (1-6); Lymphocytes Absolute Manual 1.18 K/mm3 (1.1-4.5); Lymphocytes Percent Manual 33 % (18-44); Monocytes Absolute Manual 0.43 K/mm3 (0.1-0.90); Monocytes Percent Manual 12 % (3-9); Neutrophils Percent Manual 50 % (46-73); Platelet Estimate Decreased (Adequate); Total Cells Counted 100
[2021-02-23 14:58] LABS: Alanine Aminotransferase 58 U/L (14-59); Albumin Level 3.5 g/dL (3.4-5.0); Alkaline Phosphatase 84 U/L (46-116); Anion Gap 12 mmol/L (8-16); Aspartate Amino Transferase 56 U/L (15-37); Bilirubin,Total 0.3 mg/dL (0.00-1.00); Blood Urea Nitrogen 15 mg/dL (7-18); CRP < 0.5 mg/dL (0.0-0.9); Calcium 8.5 mg/dL (8.5-10.1); Carbon Dioxide 25 mmol/L (21-32); Chloride 109 mmol/L (98-108); Estimated Glomerular Filt Rate > 60; Glucose 106 mg/dL (70-99); Osmolality Calculated 302 mOsm/kg (285-295); Potassium 4.4 mmol/L (3.5-5.1); Sodium 146 mmol/L (136-145); Total Protein 6.6 g/dL (6.4-8.2)
[2021-02-23 15:21] LABS: Erythrocyte Sedimentation Rate 4 mm/hr (0-20)
== END 2021-02-23 14:00 | disposition home or self-care (01) ==
LOC: CHSLAB 14:01
PROVIDERS: PCP Internal Medicine; Visit Provider Internal Medicine Rheumatology
DX: M19.90 Unspecified osteoarthritis, unspecified site (principal); Z79.899 Other long term (current) drug therapy
CPT/HCPCS: 36415; 80053; 85025; 85055; 85652; 86140

== ENCOUNTER 2021-05-18 10:47 | Outpatient (CLI) | payer MEDICARE, SELFPAY ==
[2021-05-18 11:22] LABS: Glucose 107 mg/dL (70-99)
[2021-05-23 05:28] LABS: C-Peptide <0.10 ng/mL (0.80-3.85)
== END 2021-05-18 10:48 | disposition home or self-care (01) ==
LOC: CHSLAB 10:50
PROVIDERS: PCP Internal Medicine; Visit Provider Internal Medicine
DX: E10.65 Type 1 diabetes mellitus with hyperglycemia (principal)
CPT/HCPCS: 36415; 82947; 84681

== ENCOUNTER 2021-06-26 12:40 | Outpatient (CLI) | payer MEDICARE, SELFPAY ==
[2021-06-26 13:44] LABS: Hemoglobin A1C 7.4 % (<5.7)
[2021-06-26 14:22] LABS: Alanine Aminotransferase 38 U/L (14-59); Albumin Level 3.5 g/dL (3.4-5.0); Alkaline Phosphatase 66 U/L (46-116); Anion Gap 10 mmol/L (8-16); Aspartate Amino Transferase 50 U/L (15-37); Bilirubin,Total 0.5 mg/dL (0.00-1.00); Blood Urea Nitrogen 19 mg/dL (7-18); Calcium 8.7 mg/dL (8.5-10.1); Carbon Dioxide 29 mmol/L (21-32); Chloride 106 mmol/L (98-108); Cholesterol 129 mg/dL (0-200); Estimated Glomerular Filt Rate > 60; Ferritin 12 ng/mL (8-252); Glucose 97 mg/dL (70-99); HDL Direct 73 mg/dL (40-60); Iron 54 ug/dL (50-170); LDL Cholesterol Calculated 44 mg/dL (<130); Osmolality Calculated 302 mOsm/kg (285-295); Percent Iron Saturation 13 % (12-57); Potassium 4.5 mmol/L (3.5-5.1); Sodium 145 mmol/L (136-145); Thyroid Stimulating Hormone 1.62 uIU/mL (0.36-3.74); Total Protein 6.5 g/dL (6.4-8.2); Triglycerides 62 mg/dL (0-150)
[2021-06-28 14:30] LABS: Basophils Absolute Auto 0.08 K/mm3 (0.00-0.10); Basophils Percent Auto 1.7 % (0.0-1.0); Eosinophils Absolute Auto 0.03 K/mm3 (0.02-0.50); Eosinophils Percent Auto 0.6 % (1.0-6.0); Hematocrit 42.3 % (35.0-42.0); Hemoglobin 12.7 g/dL (11.7-13.8); Immature Granulocyte Absolute 0.01 K/mm3 (0.00-0.00); Immature Granulocyte Percent A 0.2 % (0.0-0.0); Lymphocytes Absolute Auto 1.31 K/mm3 (1.10-4.50); Lymphocytes Percent Auto 27.3 % (18.0-42.0); Mean Corpuscular Hemoglobin 27.9 pg (27.0-31.0); Mean Platelet Volume 12.5 fl (9.2-11.8); Monocytes Absolute Auto 0.41 K/mm3 (0.10-0.90); Monocytes Percent Auto 8.6 % (2.0-11.0); Neutrophils Percent Auto 61.6 % (50.0-70.0); Platelet Count Result 289 K/mm3 (150-420); Red Blood Count 4.55 M/mm3 (4.20-5.40); Red Cell Distribution Width 14.9 % (11.6-14.4); White Blood Count 4.8 K/mm3 (4.8-10.8)
== END 2021-06-26 12:41 | disposition home or self-care (01) ==
LOC: CHSLAB 12:43
PROVIDERS: PCP Internal Medicine; Visit Provider Internal Medicine
DX: D50.9 Iron deficiency anemia, unspecified (principal); E03.9 Hypothyroidism, unspecified; I10 Essential (primary) hypertension; E10.40 Type 1 diabetes mellitus with diabetic neuropathy, unspecified
CPT/HCPCS: 36415; 80053; 80061; 82728; 83036; 83540; 83550; 84443; 85025

== ENCOUNTER 2021-07-04 09:58 | Outpatient (CLI) | payer MEDICARE, SELFPAY ==
--- NOTE | ~2021-07-04 | XR_ITS ---
EXAMINATION: XR lg joint inject/asp w image DATE: 07/04/2021 10:59 INDICATION: Left hip arthritis. TECHNIQUE: A time-out was performed to verify the patient's name, date of , and procedure to b e performed. The procedure including the risks, benefits, and alternatives was discussed with the pat ient. Risks discussed included bleeding and infection. The patient understood the risks and agreed to proceed. The skin overlying the left hip joint was prepped and draped in usual sterile fashion. An esthetic was administered with 1% lidocaine subcutaneously. A 22 G needle was advanced under fluoros copic guidance into the joint. Injection of 1 mL of Omnipaque 240 confirmed intra-articular position of the needle. Subsequently, injectate consisting of 2 mL 0.5% bupivacaine and 1 mL 80 mg/mL Depo-M edrol was instilled. The needle was removed and the entry site was cleaned and dressed. There were no immediate complications. Fluoroscopy exposure time was 0.1 minutes. The total number of images was 1. FINDINGS: Real-time fluoroscopy demonstrates the needle in the left hip joint. IMPRESSION: 1. Fluoroscopy guided left hip joint injection of local anesthetic and steroid. Reviewed, dictated and finalized at location A. [employer]
== END 2021-07-04 09:59 | disposition home or self-care (01) ==
LOC: ANHIMG 09:58
PROVIDERS: PCP Internal Medicine; Visit Provider Orthopaedic Surgery
DX: M16.12 Unilateral primary osteoarthritis, left hip (principal)
CPT/HCPCS: 20610; 77002; J1040; Q9966

== ENCOUNTER 2021-07-09 13:24 | Outpatient (CLI) | payer MEDICARE, SELFPAY ==
[2021-07-09 14:37] LABS: Free T4 Free Thyroxine 1.14 ng/dL (0.76-1.46); Thyroid Stimulating Hormone 1.02 uIU/mL (0.36-3.74)
[2021-07-12 12:40] LABS: Fructosamine 306 umol/L (205-285)
== END 2021-07-09 13:25 | disposition home or self-care (01) ==
LOC: CHSLAB 13:26
PROVIDERS: PCP Internal Medicine; Visit Provider Internal Medicine
DX: E03.8 Other specified hypothyroidism (principal); E10.65 Type 1 diabetes mellitus with hyperglycemia
CPT/HCPCS: 36415; 82985; 84439; 84443

== ENCOUNTER 2021-08-30 09:54 | Outpatient (CLI) | payer MEDICARE, SELFPAY ==
[2021-08-30 10:09] LABS: Basophils Absolute Auto 0.07 K/mm3 (0.00-0.10); Basophils Percent Auto 1.5 % (0.0-1.0); Eosinophils Absolute Auto 0.07 K/mm3 (0.02-0.50); Eosinophils Percent Auto 1.5 % (1.0-6.0); Hematocrit 39.5 % (35.0-42.0); Hemoglobin 12.3 g/dL (11.7-13.8); Immature Granulocyte Absolute 0.01 K/mm3 (0.00-0.00); Immature Granulocyte Percent A 0.2 % (0.0-0.0); Lymphocytes Absolute Auto 1.24 K/mm3 (1.10-4.50); Lymphocytes Percent Auto 25.7 % (18.0-42.0); Mean Corpuscular HGB Conc 31.1 g/dL (32.0-36.0); Mean Corpuscular Hemoglobin 27.4 pg (27.0-31.0); Monocytes Absolute Auto 0.63 K/mm3 (0.10-0.90); Monocytes Percent Auto 13.1 % (2.0-11.0); Neutrophils Absolute Auto 2.8 K/mm3 (1.7-7.2); Platelet Count Result 274 K/mm3 (150-420); Red Blood Count 4.49 M/mm3 (4.20-5.40); Red Cell Distribution Width 14.4 % (11.6-14.4); White Blood Count 4.8 K/mm3 (4.8-10.8)
[2021-08-30 11:09] LABS: Alanine Aminotransferase 51 U/L (14-59); Albumin Level 3.7 g/dL (3.4-5.0); Alkaline Phosphatase 74 U/L (46-116); Anion Gap 10 mmol/L (8-16); Aspartate Amino Transferase 50 U/L (15-37); Bilirubin,Total 0.3 mg/dL (0.00-1.00); Blood Urea Nitrogen 16 mg/dL (7-18); Calcium 9.1 mg/dL (8.5-10.1); Carbon Dioxide 29 mmol/L (21-32); Chloride 103 mmol/L (98-108); Estimated Glomerular Filt Rate > 60; Glucose 165 mg/dL (70-99); Osmolality Calculated 299 mOsm/kg (285-295); Potassium 4.4 mmol/L (3.5-5.1); Sodium 142 mmol/L (136-145); Total Protein 6.8 g/dL (6.4-8.2)
[2021-08-30 11:17] LABS: CRP < 0.2 mg/dL (0.0-0.9)
[2021-08-30 11:37] LABS: Erythrocyte Sedimentation Rate 14 mm/hr (0-20)
[2021-09-03 16:51] LABS: Ferritin 18 ng/mL (8-252)
== END 2021-08-30 09:55 | disposition home or self-care (01) ==
PROVIDERS: PCP Internal Medicine; Visit Provider Nurse Practitioner Family
DX: M19.90 Unspecified osteoarthritis, unspecified site (principal); Z79.899 Other long term (current) drug therapy
CPT/HCPCS: 36415; 80053; 82728; 85025; 85652; 86140

== ENCOUNTER 2021-10-11 13:27 | Outpatient (CLI) | payer MEDICARE, SELFPAY ==
[2021-10-11 14:54] LABS: Calcium 8.8 mg/dL (8.5-10.1); Free T4 Free Thyroxine 1.03 ng/dL (0.76-1.46)
[2021-10-15 14:05] LABS: Fructosamine 325 umol/L (205-285)
== END 2021-10-11 13:28 | disposition home or self-care (01) ==
LOC: CHSLAB 13:30
PROVIDERS: PCP Internal Medicine; Visit Provider Internal Medicine
DX: E03.8 Other specified hypothyroidism (principal); E10.65 Type 1 diabetes mellitus with hyperglycemia; E67.8 Other specified hyperalimentation; D50.9 Iron deficiency anemia, unspecified
CPT/HCPCS: 36415; 82310; 82985; 84439; 84443

== ENCOUNTER 2022-01-07 14:19 | Outpatient (CLI) | payer MEDICARE, SELFPAY ==
[2022-01-07 14:51] LABS: Basophils Absolute Auto 0.06 K/mm3 (0.00-0.10); Basophils Percent Auto 1.5 % (0.0-1.0); Eosinophils Absolute Auto 0.03 K/mm3 (0.02-0.50); Eosinophils Percent Auto 0.8 % (1.0-6.0); Hematocrit 38.1 % (35.0-42.0); Hemoglobin 11.7 g/dL (11.7-13.8); Immature Granulocyte Absolute 0.01 K/mm3 (0.00-0.00); Immature Granulocyte Percent A 0.3 % (0.0-0.0); Lymphocytes Absolute Auto 0.92 K/mm3 (1.10-4.50); Lymphocytes Percent Auto 23.1 % (18.0-42.0); Mean Corpuscular HGB Conc 30.7 g/dL (32.0-36.0); Mean Corpuscular Hemoglobin 25.8 pg (27.0-31.0); Mean Corpuscular Volume 84.1 fL (78.0-102.0); Mean Platelet Volume 10.9 fl (9.2-11.8); Monocytes Absolute Auto 0.52 K/mm3 (0.10-0.90); Neutrophils Absolute Auto 2.5 K/mm3 (1.7-7.2); Neutrophils Percent Auto 61.3 % (50.0-70.0); Platelet Count Result 290 K/mm3 (150-420); Red Blood Count 4.53 M/mm3 (4.20-5.40); Red Cell Distribution Width 15.8 % (11.6-14.4)
[2022-01-07 14:59] LABS: Creatinine Urine 85.15 mg/dL (40-278); MALB Creatinine Ratio 15.2 mg/g (0-30); Microalbumin Urine Random < 13.0 mg/L
[2022-01-07 15:00] LABS: Hemoglobin A1C 7.7 % (<5.7)
[2022-01-07 15:16] LABS: Alanine Aminotransferase 50 U/L (14-59); Albumin Level 3.4 g/dL (3.4-5.0); Alkaline Phosphatase 88 U/L (46-116); Anion Gap 6 mmol/L (8-16); Aspartate Amino Transferase 67 U/L (15-37); Bilirubin,Total 0.5 mg/dL (0.00-1.00); Blood Urea Nitrogen 17 mg/dL (7-18); Calcium 8.5 mg/dL (8.5-10.1); Carbon Dioxide 28 mmol/L (21-32); Chloride 106 mmol/L (98-108); Cholesterol 133 mg/dL (0-200); Estimated Glomerular Filt Rate > 60; Free T4 Free Thyroxine 0.93 ng/dL (0.76-1.46); Glucose 150 mg/dL (70-99); HDL Direct 82 mg/dL (40-60); LDL Cholesterol Calculated 35 mg/dL (<130); LDL Cholesterol Direct 39 mg/dL (0-130); Osmolality Calculated 294 mOsm/kg (285-295); Potassium 4.4 mmol/L (3.5-5.1); Sodium 140 mmol/L (136-145); Thyroid Stimulating Hormone 0.38 uIU/mL (0.36-3.74); Total Protein 6.7 g/dL (6.4-8.2); Triglycerides 80 mg/dL (0-150)
[2022-01-09 21:16] LABS: Fructosamine 314 umol/L (205-285)
== END 2022-01-07 14:20 | disposition home or self-care (01) ==
LOC: CHSLAB 14:25
PROVIDERS: PCP Internal Medicine; Visit Provider Internal Medicine
DX: E03.8 Other specified hypothyroidism (principal); E10.65 Type 1 diabetes mellitus with hyperglycemia; D64.9 Anemia, unspecified; I10 Essential (primary) hypertension; E10.40 Type 1 diabetes mellitus with diabetic neuropathy, unspecified
CPT/HCPCS: 36415; 80053; 80061; 82043; 82985; 83036; 83721; 84439; 84443; 85025

== ENCOUNTER 2022-01-15 10:53 | Outpatient (CLI) | payer MEDICARE, SELFPAY ==
--- NOTE | ~2022-01-15 | XR_ITS ---
EXAMINATION: XR lg joint inject/asp w image DATE: 01/15/2022 11:59 INDICATION: Left hip arthritis TECHNIQUE: A time-out was performed to verify the patient's name, date of , and procedure to b e performed. The procedure including the risks, benefits, and alternatives was discussed with the pat ient. Risks discussed included bleeding and infection. The patient understood the risks and agreed to proceed. The skin overlying the left hip joint was prepped and draped in usual sterile fashion. An esthetic was administered with 1% lidocaine subcutaneously. A 22 G needle was advanced under fluoros copic guidance into the joint. Injection of 1 mL of Omnipaque 240 confirmed intra-articular position of the needle. Subsequently, injectate consisting of 3 mL of a 2:1 mixture of 0.5% bupivacaine:80 m g/mL Depo-Medrol for a total dosage of 80 mg Depo-Medrol was instilled. Washout of contrast was seen confirming intra-articular administration. The needle was removed and the entry site was cleaned and dressed. There were no immediate complications. Fluoroscopy exposure time was 0.1 minutes. The total number of images was 2. FINDINGS: Real-time fluoroscopy demonstrates the needle in the left hip joint. Patient's pain prior t o procedure:03/30. Patient's pain following the procedure: 07/30. Lucent fixation screw tracks at the left femoral head and neck. IMPRESSION: 1. Accessible left hip joint injection of local anesthetic and steroid with decrease in the patient's presenting pain. Reviewed, dictated and finalized at location A. IMPRESSION: 1. Accessible left hip joint injection of local anesthetic and steroid with dec rease in the patient's presenting pain.
== END 2022-01-15 10:54 | disposition home or self-care (01) ==
PROVIDERS: PCP Internal Medicine; Visit Provider Orthopaedic Surgery
DX: M16.12 Unilateral primary osteoarthritis, left hip (principal)
CPT/HCPCS: 20610; 77002; J1040; Q9966

== ENCOUNTER 2022-01-22 12:31 | Outpatient (CLI) | payer MEDICARE, SELFPAY ==
--- NOTE | ~2022-01-22 | CT_ITS ---
EXAMINATION: CT abdomen pelvis w con DATE: 01/22/2022 13:05 INDICATION: Abdominal cramping and constipation for one to 2 months. TECHNIQUE: Computed tomography (CT) of the abdomen and pelvis was performed with 100 CC Omnipaque 350 intravenous contrast. Automated exposure control and iterative reconstruction technique were employe d. Exam dose: 174.44 mGy-cm total exam DLP. COMPARISON: None. FINDINGS: Moderate emphysematous changes are noted in the lower lung zones. Mild left lower lobe disc oid atelectasis or scar. Normal heart size. No pericardial or pleural effusion. Bilateral breast implants. The liver, spleen, pancreas and bile ducts and pancreatic duct are unremarkable. Status post cholecystectomy. Normal morphology of the adrenal glands. No renal mass lesion or urinary tract calculus or hydroureteronephrosis is detected. The urinary blad yaneth is unremarkable. Status post hysterectomy. No bowel obstruction or intraperitoneal free air. There is extensive atherosclerotic calcification of the abdominal aorta and iliac and femoral arterie s. No abdominal aortic aneurysm. No intraperitoneal or retroperitoneal or pelvic mass lesion or adeno sulaiman or ascites. Small fat-containing umbilical hernia. The tracts of 3 former screws through the intertrochanteric area and femoral neck into the left femor al head are noted. The hardware is no longer present. Osteopenia. No suspicious osteolytic or osteoblastic lesions are noted. IMPRESSION: No bowel obstruction Status post cholecystectomy Status post hysterectomy Bilateral breast implants Emphysema Reviewed, dictated and finalized at Location A. Reviewed, dictated and finalized at location A.
== END 2022-01-22 12:32 | disposition home or self-care (01) ==
LOC: CHSIMG 12:34
PROVIDERS: PCP Internal Medicine; Visit Provider Internal Medicine
DX: K59.00 Constipation, unspecified (principal); R10.9 Unspecified abdominal pain
CPT/HCPCS: 74177; Q9967

== ENCOUNTER 2022-03-29 15:01 | Outpatient (CLI) | payer MEDICARE, SELFPAY ==
--- NOTE | ~2022-03-29 | XR_ITS ---
EXAMINATION: XR chest 2V DATE: 03/29/2022 15:20 INDICATION: Respiratory infection TECHNIQUE: PA and lateral views of the chest were obtained. COMPARISON: Chest radiograph dated 10/06/2019 FINDINGS: The lungs remain clear with no focal airspace opacities, pulmonary edema, pleural effusion or pneumot horax. The cardiomediastinal silhouette is normal. The curvilinear capsular calcification associated with bilateral breast implants. Mild thoracic spondylosis. IMPRESSION: 1. No acute cardiopulmonary disease. Reviewed, dictated and finalized at location A.
== END 2022-03-29 15:02 | disposition home or self-care (01) ==
LOC: CHSIMG 15:04
PROVIDERS: PCP Internal Medicine; Visit Provider Internal Medicine
DX: J98.8 Other specified respiratory disorders (principal)
CPT/HCPCS: 71046

== ENCOUNTER 2022-05-12 10:34 | Emergency (ER) | payer MEDICARE, SELFPAY ==
[2022-05-12] VITALS (8 sets, daily range): BP systolic 141–154; BP diastolic 71–84; PULSE 73–79; RESP 16–24; TEMP 36.6–37.1; O2SAT 78–100
--- NOTE | ~2022-05-12 | XR_ITS ---
EXAMINATION: XR chest 1V portable DATE: 05/12/2022 11:40 INDICATION: Chest pain and shortness of breath TECHNIQUE: frontal view of the chest was obtained. COMPARISON: Chest radiograph dated 03/29/2022 FINDINGS: There is a gradient of basilar predominant hazy airspace opacities in the bladder mid and lower lung zones consistent with small bilateral posterior layering pleural effusions. Diffuse increased interst itial pattern with perihilar and lower lung predominance consistent with mild pulmonary edema. Consol idation at the medial lung bases which could represent associated atelectasis or pneumonia. Heart siz e is normal. Subtle curvilinear catheter calcifications associated with bilateral breast implants. IMPRESSION: 1. Bilateral interstitial and hazy airspace opacities likely representing mild pulmonary edema and sm all bilateral pleural effusions. 2. More dense consolidation at the medial lung bases which could represent associated atelectasis or pneumonia. Reviewed, dictated and finalized at location A. IMPRESSION: 1. Bilateral interstitial and hazy airspace opacities likely representing mild pulmonary edema and small bilateral pleural effusions. 2. More dense consolidation at the medial lung bases which could represent asso ciated atelectasis or pneumonia.
--- NOTE | ~2022-05-12 | CT_ITS ---
EXAMINATION: CTA chest PE protocol DATE: 05/12/2022 13:00 INDICATION: Chest pain. Shortness of breath. TECHNIQUE: Computed tomography (CT) pulmonary angiogram of the chest was performed with 100 mL Omnipa que-350 intravenous contrast. Additional 3D reconstructions utilizing coronal maximum intensity proje ction (MIP) were performed. The dose-length product was 162.56 mGy-cm. COMPARISON: None FINDINGS: Excellent contrast opacification of the pulmonary arteries. There is moderate streak artifact from de nse contrast in the superior vena cava and right atrium. Mild scattered respiratory motion artifact g reatest at the left lower lung zone where it decreases sensitivity in the smaller left basilar subseg mental pulmonary arteries. No pulmonary embolism. Moderate-sized right and small left posteriorly lay ering pleural effusions with associated dependent passive atelectasis in the bilateral lower lobes. D iffuse groundglass opacities which could be related to atelectasis or mild pulmonary edema, bladder s uggested by smooth septal line thickening at the apices of lungs. 1 cm ill-defined spiculated groundg lass nodule in the left apex. Mild cardiomegaly. Atherosclerotic coronary artery calcific location. N o pericardial effusion. Thoracic aorta is normal in caliber. Calcified subcarinal lymph nodes consist ent with old granulomatous disease. No pathologically enlarged thoracic lymphadenopathy. Bilateral br east implants. There is reflux of contrast into the inferior vena cava and hepatic veins consistent w ith tricuspid regurgitation. Mild thoracic spondylosis. IMPRESSION: 1. No pulmonary embolism. 2. Likely congestive heart failure with cardiomegaly and mild pulmonary edema. 3. Moderate-sized right and small left posteriorly layering pleural effusions with associated depende nt passive atelectasis 4. 1 cm spiculated groundglass nodule at the left apex most likely infectious/inflammatory in etiolog y but would recommend 3 month follow-up noncontrast chest CT. Reviewed, dictated and finalized at location A. IMPRESSION: 1. No pulmonary embolism. 2. Likely congestive heart failure with cardiomegaly and mild pulmonary edema. 3. Moderate-sized right and small left posteriorly layering pleural effusions w ith associated dependent passive atelectasis 4. 1 cm spiculated groundglass nodule at the left apex most likely infectious/i nflammatory in etiology but would recommend 3 month follow-up noncontrast chest CT.
--- NOTE | 2022-05-12 10:53 | ECG_ITS ---
Measurements Intervals [place] Rate: 76 P: 65 NE: 178 QRS: 45 QRSD: 174 T: 73 QT: 466 QTc: 526 Interpretive Statements SINUS RHYTHM POSSIBLE LEFT ATRIAL ENLARGEMENT [-0.1mV P-WAVE IN V1/V2] LEFT BUNDLE BRANCH BLOCK [120+ ms QRS DURATION, 80+ ms Q/S IN V1/V2, 85+ ms R IN I/aVL/V5/V6] COMPARED TO ECG 02/15/2021 07:16:29 SINUS RHYTHM NOW PRESENT Electronically Signed On 05-12-2022 19:52:55 CDT by Annie Ramirez M.D.
--- NOTE | 2022-05-12 11:03 | ED.SOB ---
HPI - SOB/Dyspnea General Chief Complaint: Shortness of Breath/Dyspnea Stated Complaint: trouble breathing nauseated chest pain Time Seen by Provider: 05/12/22 10:54 Source: patient Mode of arrival: ambulatory Limitations: no limitations History of Present Illness HPI Narrative: Patient is 67-year-old white female with history of emphysema has not felt well for the last week last night she had difficulty breathing and continued today. She has had some chest tightness just prior to admission which is gone now. Her pain was a 7 now it is 0 she described it as tightness. She has had a dry cough had some nausea without vomiting. Patient stated she had a chest x-ray 2 or 3 weeks ago because she had some chest tightness at that time. Chest x-ray was negative for pneumonia. Past medical history: Emphysema diabetes type 1 autoimmune thyroiditis peripheral vascular disease with stent placements left bundle-branch block Raynaud's disease. Denies any cancer coronary artery disease or thrombo embolism. PAST SURGICAL HISTORY: SHE HAS HAD 1 HEART CATHS IN THE PAST WITHOUT BLOCKAGE. STENTS FOR PERIPHERAL VASCULAR DISEASE MD elicited complaint: shortness of breath Related Data Home Medications Medication Instructions Recorded Confirmed amlodipine 10 mg tablet (Norvasc) 10 mg PO DAILY 02/13/21 05/12/22 aspirin 81 mg tablet,delayed 81 mg PO DAILY 02/13/21 05/12/22 release (Adult Aspirin Regimen) atorvastatin 20 mg tablet 20 mg PO DAILY 02/13/21 05/12/22 calcium carbonate 600 mg-vitamin 1 tablet PO DAILY 02/13/21 05/12/22 D3 5 mcg (200 unit) tablet cyclosporine 0.05 % eye drops in a 1 drp EACH EYE Q12H 02/13/21 05/12/22 dropperette (Restasis) estradiol-norethindrone acet 0.5 1 tablet PO DAILY 02/13/21 05/12/22 mg-0.1 mg tablet hydroxychloroquine 200 mg tablet 200 mg PO DAILY 02/13/21 05/12/22 insulin lispro 100 unit/mL 1 sliding scale dose subcut 02/13/21 05/12/22 subcutaneous cartridge (Humalog USEASDIRECTD U-100 Insulin) insulin pump controller 02/13/21 05/12/22 ipratropium bromide 21 mcg (0.03 2 spray intranasal BID 02/13/21 05/12/22 %) nasal spray latanoprost 0.005 % eye drops 1 drp EACH EYE QPM 02/13/21 05/12/22 levothyroxine 112 mcg capsule 112 mcg PO DAILY 02/13/21 05/12/22 lisinopril 5 mg tablet 5 mg PO DAILY 02/13/21 05/12/22 lorazepam 0.5 mg tablet 0.5 mg PO DAILY PRN Anxiety 02/13/21 05/12/22 metoprolol succinate 50 mg 50 mg PO DAILY 02/13/21 05/12/22 tablet,extended release 24 hr sertraline 100 mg tablet 100 mg PO DAILY 02/13/21 05/12/22 cyclobenzaprine 10 mg tablet 10 mg PO DAILY 05/12/22 05/12/22 Allergies Allergy/AdvReac Type Severity Reaction Status Date / Time No Known Allergies Allergy Verified 02/19/21 09:23 Review of Systems Review of Systems: All systems reviewed & are unremarkable except as noted in HPI and below Constitutional: Constitutional: Reports no additional constitutional complaints Eyes: Eyes: Reports no additional eye complaints ENT: Reports system reviewed and no additional complaints, except as documented Cardiovascular: Cardiovascular: Reports as per HPI, Reports no additional cardiovascular complaints, Reports chest pain, Denies rapid heart rate, Denies radiating jaw, neck or arm pain and Denies slow heart rate Respiratory: Respiratory: Reports no additional respiratory complaints, Reports cough and Reports dyspnea Gastrointestinal: Gastrointestinal: Reports no additional gastrointestinal complaints, Denies abdominal pain, Denies diarrhea, Reports nausea and Denies vomiting Genitourinary: Genitourinary: Reports no additional female genitourinary complaints Musculoskeletal: Musculoskeletal: Reports no additional musculoskeletal complaints Neurologic: Reports system reviewed and no additional complaints, except as documented Endocrine: Comments: Patient states she has an autoimmune disease that nobody knows what the diagnosis is. But she did say she has autoimmun
[2022-05-12] MEDS: IPRATROPIUM 0.5 MG/ALBUTEROL SULFATE 2.5 MG AMPUL.NEB 3 ML INHALATION (11:11)
[2022-05-12 11:47] LABS: Basophils Absolute Auto 0.06 K/mm3 (0.00-0.10); Basophils Percent Auto 1.5 % (0.0-1.0); Eosinophils Absolute Auto 0.03 K/mm3 (0.02-0.50); Eosinophils Percent Auto 0.7 % (1.0-6.0); Hematocrit 39.2 % (35.0-42.0); Hemoglobin 11.8 g/dL (11.7-13.8); Immature Granulocyte Absolute 0.01 K/mm3 (0.00-0.00); Immature Granulocyte Percent A 0.2 % (0.0-0.0); Lymphocytes Absolute Auto 1.07 K/mm3 (1.10-4.50); Lymphocytes Percent Auto 26.2 % (18.0-42.0); Mean Corpuscular HGB Conc 30.1 g/dL (32.0-36.0); Mean Corpuscular Hemoglobin 23.8 pg (27.0-31.0); Mean Platelet Volume 11.1 fl (9.2-11.8); Monocytes Absolute Auto 0.54 K/mm3 (0.10-0.90); Monocytes Percent Auto 13.2 % (2.0-11.0); Neutrophils Absolute Auto 2.4 K/mm3 (1.7-7.2); Neutrophils Percent Auto 58.2 % (50.0-70.0); Platelet Count Result 284 K/mm3 (150-420); Red Blood Count 4.96 M/mm3 (4.20-5.40); Red Cell Distribution Width 17.2 % (11.6-14.4); White Blood Count 4.1 K/mm3 (4.8-10.8)
[2022-05-12 12:02] LABS: INR 1.3; Partial Thromboplastin Time 25.8 SEC (23.90-30.70); Prothrombin Time 13.5 Seconds (9.50-12.10)
[2022-05-12 12:08] LABS: D Dimer 0.65 mg/L (0.19-0.50)
[2022-05-12 12:10] LABS: Alanine Aminotransferase 65 U/L (14-59); Albumin Level 3.3 g/dL (3.4-5.0); Anion Gap 9 mmol/L (8-16); Aspartate Amino Transferase 89 U/L (15-37); Bilirubin,Total 0.7 mg/dL (0.00-1.00); Blood Urea Nitrogen 21 mg/dL (7-18); Calcium 8.4 mg/dL (8.5-10.1); Carbon Dioxide 28 mmol/L (21-32); Chloride 104 mmol/L (98-108); Estimated CRCL calculation 39 ml/min; Estimated Glomerular Filt Rate 56; Glucose 138 mg/dL (70-99); Magnesium 1.6 mg/dL (1.8-2.4); NT Pro B Type Natriuretic Pept 8209 pg/mL (0-125); Osmolality Calculated 297 mOsm/kg (285-295); Potassium 4.3 mmol/L (3.5-5.1); Sodium 141 mmol/L (136-145); Total Protein 6.8 g/dL (6.4-8.2)
[2022-05-12 12:11] LABS: Influenza Control Valid (Valid)
[2022-05-12 12:14] LABS: Alkaline Phosphatase 135 U/L (46-116)
[2022-05-12] MEDS: ONDANSETRON INJ 4 MG/2 ML VIAL IV PUSH (13:39)
[2022-05-12] MEDS: ENOXAPARIN 100 MG/ML SYRINGE 50 MG SUB-Q (15:15)
[2022-05-12] MEDS: ASPIRIN 81 MG CHEWABLE TABLET 324 MG PO (15:16)
--- NOTE | 2022-05-12 15:30 | PC.NURSE ---
pt updated throughout er visit. notified of room for admission. mery here and also aware. no questions or concerns at this time.
--- NOTE | 2022-05-12 16:03 | PC.NURSE ---
1600 pt loaded to cot. remains alert and stable.
== END 2022-05-12 16:02 | disposition short-term general hospital (02) ==
PROVIDERS: Emergency Provider Emergency Medicine; PCP Internal Medicine
DX: I21.4 Non-ST elevation (NSTEMI) myocardial infarction (principal); R06.00 Dyspnea, unspecified; R91.1 Solitary pulmonary nodule; E11.9 Type 2 diabetes mellitus without complications; Z79.4 Long term (current) use of insulin; Z96.41 Presence of insulin pump (external) (internal)
CPT/HCPCS: 36415; 71045; 71275; 80053; 83735; 83880; 84484; 85025; 85380; 85610; 85730; 87040; 87804; 93005; 94640; 96372; 96374; 99285; A9270; J1650; J2405; Q9967

== ENCOUNTER 2022-05-12 16:58 | Inpatient (IN) | payer MEDICARE, SELFPAY ==
--- NOTE | ~2022-05-12 | US_ITS ---
EXAMINATION: US venous doppler [facility] DATE: 05/15/2022 09:59 INDICATION: Chest pain. TECHNIQUE: Grayscale ultrasound images without and with compression and Doppler ultrasound images of the bilateral lower extremity veins were obtained. COMPARISON: None. FINDINGS: The visualized portions of right common femoral vein, profunda (deep) femoral vein, femoral vein, pop liteal vein, posterior tibial veins, and greater saphenous vein outflow are patent. There is thrombus in the right peroneal veins. The visualized portions of left common femoral vein, profunda femoral vein, femoral vein, popliteal v ein, peroneal veins, posterior tibial veins, and greater saphenous vein outflow are patent. IMPRESSION: 1. Deep vein thrombosis involving the right peroneal veins. I called this result to Dr. Wright. Reviewed, dictated and finalized at location A. IMPRESSION: 1. Deep vein thrombosis involving the right peroneal veins. I called this resu lt to Dr. Wright.
--- NOTE | ~2022-05-12 | NM_ITS ---
EXAMINATION: NM tammi stress w perfusion DATE: 05/15/2022 11:47 INDICATION: New cardiomyopathy TECHNIQUE: Rest images were obtained following intravenous administration of 10.5 mCi Tc99m tetrofosm in (Myoview). The patient was infused intravenously with Lexiscan (Regadenoson). Then, 3.5 mCi Tc99m tetrofosmin (Myoview) was administered intravenously, and stress images were obtained. Data was recon structed into short axis and horizontal and vertical long axis SPECT images. Gated SPECT images were also obtained. COMPARISON: None. FINDINGS: Moderate severity nonreversible perfusion defect consistent with infarct involving the apic al septal, mid anteroseptal and basilar anteroseptal segments. No reversible ischemia. There is aydee l left ventricular chamber size with paradoxical septal wall motion. Left ventricular ejection fracti on measures 36%. IMPRESSION: 1. Small to moderate-sized moderate severity infarct involving the apical septal, mid anteroseptal an d basilar anteroseptal segments with associated paradoxical septal wall motion. 2. Left ventricular ejection fraction measuring 36%. Reviewed, dictated and finalized at location A. IMPRESSION: 1. Small to moderate-sized moderate severity infarct involving the apical septa l, mid anteroseptal and basilar anteroseptal segments with associated paradoxic al septal wall motion. 2. Left ventricular ejection fraction measuring 36%.
--- NOTE | ~2022-05-12 | US_ITS ---
US right upper quadrant INDICATION: Elevated liver function tests. PROCEDURE: Realtime right upper abdominal ultrasound. COMPARISON: No prior studies for comparison. FINDINGS: The pancreas is normal without focal mass or pancreatic ductal dilation. Liver echotexture is normal without focal mass or intrahepatic biliary dilatation. There is normal directional flow i n the portal vein. Gallbladder surgically absent. Common bile duct measures 3 mm. There is a right pleural effusion. IMPRESSION: 1: Unremarkable limited abdominal ultrasound postcholecystectomy. 2: Right pleural effusion. Reviewed, dictated and finalized at location B.
--- NOTE | ~2022-05-12 | US_ITS ---
EXAMINATION: US carotid duplex BI DATE: 05/13/2022 10:24 INDICATION: Carotid bruit TECHNIQUE: Grayscale, color Doppler, and pulsed Doppler images of the cervical carotid arteries were obtained. The degree of vessel stenosis is placed in one of the following categories: normal, <50%, 5 0-69%, >=70% but less than near-occlusion, near-occlusion, or total occlusion. Note that percent sten osis relative to normal distal artery lumen diameter is indirectly measured from velocity measurement s as described by Vin, et al. Radiology 2003; 229:340-346. Notes: Normal: Peak systolic velocity <125 centimeters/sec and no plaque <50%. Peak systolic velocity <125 ( EDV <40; ICA/CCA PSV ratio <2.0; used these factors only a tandem lesions or low cardiac output or co ntralateral disease) 50-69 %: PSV 125-230 (EDV 40-100; ratio 2-4) >= 70% but less than near occlusion: PSV greater than 230 (EDV > 100; ratio> 4.0) Near Occlusion: PSV that is variable; markedly narrowed lumen Occlusion: Absent flow on color/spectral Doppler and no lumen on méndez scale. COMPARISON: Ultrasound dated 07/08/2013. FINDINGS: RIGHT: The right common carotid artery (CCA) peak systolic velocity (PSV) is 66 cm/s. The right internal car otid artery (ICA) PSV is 153 cm/s. The right ICA end-diastolic velocity (EDV) is 31 cm/s. The right I CA/CCA PSV ratio is 2.3. The external carotid artery (ECA) PSV is 145 cm/s. There is antegrade flow i n the right vertebral artery. LEFT: The left CCA PSV is 77 cm/s. The left ICA PSV is 81 cm/s. The left ICA EDV is 27 cm/s. The left ICA/C CA PSV ratio is 1.1. The ECA PSV is 118 cm/s. There is antegrade flow in the left vertebral artery. IMPRESSION: 1. 50-69% stenosis in the right internal carotid artery by sonographic criteria. 2. Less than 50% stenosis in the left internal carotid artery by sonographic criteria. Reviewed, dictated and finalized at location B. IMPRESSION: 1. 50-69% stenosis in the right internal carotid artery by sonographic criteria . 2. Less than 50% stenosis in the left internal carotid artery by sonographic cr iteria.
--- NOTE | 2022-05-12 17:01 | ECG_ITS ---
Measurements Intervals [place] Rate: 73 P: 35 NC: 185 QRS: 27 QRSD: 172 T: 37 QT: 471 QTc: 523 Interpretive Statements SINUS RHYTHM POSSIBLE LEFT ATRIAL ENLARGEMENT [-0.1mV P WAVE IN V1/V2] LEFT BUNDLE BRANCH BLOCK [120+ ms QRS DURATION, 80+ ms Q/S IN V1/V2, 85+ ms R IN I/aVL/V5/V6] COMPARED TO ECG 05/12/2022 10:53:01 NO SIGNIFICANT CHANGES Electronically Signed On 05-12-2022 19:50:53 CDT by Annie Ramirez M.D.
--- NOTE | 2022-05-12 17:19 | ADMGEN ---
This patient, Bettye Thrasher, was admitted to IMU Room 205-02. Patient/family oriented to hospital policies and general routines including ID bracelet, bed and alarms, visiting hours, pain management, procedures, bathroom and other care routines, personal items, smoking policy, room service/diet, and visiting hours. Information on how to activate the Rapid Response Team has been discussed. Patient/Family are encouraged to report perceived risks to care and to ask questions if they do not understand what they are told or what they should do.
[2022-05-12 17:21] VITALS: BMI 19.9
[2022-05-12 17:31] LABS: Anion Gap 12 mmol/L (8-16); Blood Urea Nitrogen 19 mg/dL (7-17); CRP 1.2 mg/dL (<1.0); Calcium 8.5 mg/dL (8.4-10.2); Carbon Dioxide 26 mmol/L (22-30); Chloride 102 mmol/L (98-107); Estimated CRCL calculation 48 ml/min; Estimated Glomerular Filt Rate > 60; Glucose 140 mg/dL (65-110); Magnesium 1.6 mg/dL (1.6-2.3); Potassium 4.2 mmol/L (3.4-5.0); Sodium 140 mmol/L (137-145)
[2022-05-12 17:39] LABS: Hemoglobin A1C 9.1 % (<5.7)
--- NOTE | 2022-05-12 17:45 | PM.IMHP ---
H&P: HPI History of Present Illness Date/Time: 05/12/22 17:45 Chief Complaint: NSTEMI. Narrative: This is a 67-year-old female with history of nonobstructing coronary artery disease on cardiac catheterization in 2015, hypertension, hyperlipidemia, peripheral vascular disease, type 1 diabetes mellitus, hypothyroidism, and systemic lupus erythematosus who is being directly admitted to IMU from the ER at the [facility] after she was found to have elevated troponins after presenting with complaints of chest pain and shortness a breath. She has chronic dyspnea on exertion, for instance it takes her at least 15 minutes to recover after carrying a basket full of laundry up 3 steps, although she has had increasing shortness of breath on lesser and lesser exertion over the past 1 week. She has also had intermittent lower extremity edema and she has not been sleeping well due to orthopnea. Additionally she reports a tightness sensation in the mid chest region without radiation. This morning her shortness of breath and chest tightness were a bit worse and she decided to come in for evaluation. EKG done at the outside facility showed a sinus rhythm with a chronic left bundle branch block and her initial troponin was elevated, prompting transfer for Cardiology consultation. at the outside facility she was given aspirin 325 milligrams and Lovenox 1 milligram/kilogram. At the time my evaluation she is resting comfortably though she continues to have shortness of breath in the supine position and occasional chest tightness but nothing significant. She had some nausea earlier today but she denies vomiting, sweats, and dizziness. Review of Systems Review of Systems: Twelve systems were reviewed. No fever, chills, or sweats. No recent cold or flu symptoms. No syncope or presyncope. She has chronic dyspnea on exertion as detailed above. She had findings of emphysema on a recent CT and by PFTs and she is to be establishing care with a new cleaning maid is in the coming month or so. No pleuritic pain or palpitations. No history of venous thromboembolism. She has chronic, peripheral vascular disease of the lower limbs and does get discomfort with exertion. She uses an insulin pump in her hemoglobin A1cs usually around 9%. Except as documented, all other systems were reviewed and are negative. [facility] Past Medical History Medical History (Updated 05/12/22 @ 22:44 by Lanetet G. Gerling, PA-C) Anxiety Arthritis of hip Autoimmune thyroiditis Coronary artery disease Diabetic neuropathy Diabetic retinopathy Glaucoma Hypertension Hypothyroidism Peripheral vascular disease Raynaud disease Systemic lupus erythematosus related syndrome Type 1 diabetes mellitus Diagnosed at the age of 22, on insulin pump. Surgical History Surgical History (Updated 05/12/22 @ 22:44 by Lanette Tran PA-C) History of cardiac catheterization History of cholecystectomy History of coronary artery stent placement History of hip surgery History of tubal ligation History of vascular surgery Bilateral lower extremity stents. Family History Family History Father Alcoholism Mother Carcinoma of colon Hypertension Sibling Hypertension Other Hypertension Thyroid disorder Grandparent Cerebrovascular accident Social History Social History (Updated 05/12/22 @ 22:34 by Lanette Tran PA-C) Social History: Surrogate medical decision maker: Juvencio Meneseslorna, spouse. Code status: Full code. Years smoked: 40 Smoking status: Former smoker Tobacco type: e-cigarettes/vaping Smoking end date: 07/21/13 Additional smoking assessment comments: The patient continues to vape. Alcohol intake: never Substance use: never Substance use type: does not use Last use: 2012 Living arrangements: with family Occupation/Education: retired Spiritual care concerns: Yes Has the Lack of T
[2022-05-12 18:30] LABS: Procalcitonin 0.1 ng/mL
[2022-05-12 18:32] VITALS: PULSE 76
[2022-05-12 18:45] LABS: Hepatitis B Surface Antigen Negative (Negative)
[2022-05-12 18:50] VITALS: BP 139/76; PULSE 74; RESP 18; TEMP 36.7; O2SAT 100
[2022-05-12 18:51] LABS: HAV RESULT Negative (Negative); Hepatitis B Core IgM Result Negative (Negative)
[2022-05-12 19:02] LABS: Hepatitis C Virus Antibody Negative (Negative)
[2022-05-12 20:00] VITALS: BP 119/48; PULSE 71; PULSE 73; RESP 16; TEMP 36.2; O2SAT 99
[2022-05-12 20:44] LABS: Troponin I 0.664 ng/mL (0.000-0.034)
[2022-05-12 22:00] VITALS: PULSE 73
[2022-05-12] MEDS: LORazepam (*CRX) 0.5 MG TABLET PO (22:51)
[2022-05-12] MEDS: LATANOPROST 0.005% OP SOLN 2.5 ML BTL 1 DROP EACH EYE (22:52)
[2022-05-12 22:56] VITALS: PULSE 74
[2022-05-12] MEDS: METOPROLOL TARTRATE 25 MG TABLET PO (22:56)
[2022-05-12] MEDS: ENOXAPARIN 60 MG/0.6 ML SYRINGE 50 MG SUB-Q (22:56)
[2022-05-12 23:33] VITALS: BP 136/64; PULSE 75; RESP 18; TEMP 36.4; O2SAT 100
[2022-05-12 23:46] LABS: Troponin I 0.681 ng/mL (0.000-0.034)
[2022-05-13] VITALS (14 sets, daily range): BP systolic 102–122; BP diastolic 42–66; PULSE 56–75; RESP 16–20; TEMP 36.1–37; O2SAT 95–100
--- NOTE | 2022-05-13 | ECHO_ITS ---
Patient Info Name: Bettye Thrasher Age: 67 years : 1955 Gender: Female Ht: 63 in Wt: 112 lbs BSA: 1.50 m2 HR: 60 bpm BP: 121 / 64 mmHg Heart Rhythm: Sinus Rhythm Technical Quality: Fair Exam Date: 05/13/2022 1:44 PM Exam Location: [facility] Pulmonary Patient Status: Inpatient Admit Date: 05/12/2022 Staff Ordering Physician: Lalito Isaacs MD Videotape Recording Engineer: Clari Alas RDCS Attending Provider: Demar Figueroa MD Referring Physician: Shital VALENCIA; Exam Type: CA echo doppler color flow Study Info Indications I44.7 - Left bundle-branch block, unspecified R06.00 - Dyspnea, unspecified Complete two-dimensional, color flow and Doppler transthoracic echocardiogram is performed. Summary 1. Left ventricular chamber dimension is normal. 2. Left ventricular systolic function is moderately reduced, estimated at 30-35% with paradoxical septal wall motion abnormality. D shaped septum in diastole consistent with right ventricular volume and/or pressure overload. 3. Paradoxical septal wall motion secondary to intraventricular conduction delay. 4. There is mild concentric increased left ventricular wall thickness with at least moderate asymmetric posterior hypertrophy. 5. The left ventricular diastolic function is abnormal. 6. Global longitudinal strain is severely elevated at -7 %. 7. Right ventricular chamber dimension is normal. 8. Right ventricular systolic function is reduced. 9. There is mild tricuspid valve regurgitation. 10. No pulmonary hypertension, estimated pulmonary arterial systolic pressure is 34 mmHg. 11. There is mild mitral valve regurgitation. 12. Dilated inferior vena cava with <50% collapse upon inspiration consistent with elevated right atrial pressure, 10 mmHg. 13. Left pleural effusion. Left Ventricle Left ventricular chamber dimension is normal. Left ventricular systolic function is moderately reduced, estimated at 30-35% with paradoxical septal wall motion abnormality. D shaped septum in diastole consistent with right ventricular volume and/or pressure overload. There is mild concentric increased left ventricular wall thickness with at least moderate asymmetric posterior hypertrophy. The left ventricular diastolic function is abnormal. Global longitudinal strain is severely elevated at -7 %. Right Ventricle Right ventricular chamber dimension is normal. Right ventricular systolic function is reduced. Left Atria Left atrial chamber dimension is normal. Right Atria Right atrial chamber dimension is mildly enlarged. Aortic Valve The aortic valve is trileaflet. There is mild aortic valve sclerosis. There is no aortic valve stenosis. There is trace aortic valve regurgitation. Pulmonic Valve The pulmonic valve is not well visualized. Mitral Valve The mitral valve has thickened leaflets. There is mild mitral valve regurgitation. The mitral valve annulus is mildly calcified. Tricuspid Valve The tricuspid valve leaflets are normal. There is mild tricuspid valve regurgitation. No pulmonary hypertension, estimated pulmonary arterial systolic pressure is 34 mmHg. Pericardium/Pleural The pericardium appears normal. Left pleural effusion. Inferior Vena Cava Dilated inferior vena cava with <50% collapse upon inspiration consistent with elevated right atrial pressure, 10 mmHg. Aorta The aortic root size at the sinus of Valsalva is normal. The prox ascending aorta size is normal. Left Ventricu
[2022-05-13 00:50] LABS: Glucose Point of Care 99 mg/dl (65-105)
[2022-05-13] MEDS: TRIMETHOBENZAMIDE HCL 200 MG/2 ML VIAL IM (01:15)
[2022-05-13] MEDS: LEVOTHYROXINE SODIUM 112 MCG TABLET PO (05:12)
[2022-05-13 05:56] LABS: Hematocrit 35.3 % (37.0-47.0); Hemoglobin 10.7 g/dL (12.0-15.0); Mean Corpuscular HGB Conc 30.3 g/dl (32-36); Mean Corpuscular Hemoglobin 24.3 pg (26-34); Mean Corpuscular Volume 80.2 fl (80-100); Mean Platelet Volume 11.6 fl (7.4-10.4); Platelet Count Result 257 k/mm3 (150-375); Red Cell Distribution Width 17.6 % (11.5-14.5); White Blood Count 5.1 K/mm3 (4.5-10.0)
[2022-05-13 06:07] LABS: Alanine Aminotransferase 54 U/L (6-35); Albumin Level 3.3 g/dL (3.5-5.1); Alkaline Phosphatase 122 U/L (38-126); Anion Gap 10 mmol/L (8-16); Aspartate Amino Transferase 97 U/L (14-36); Bilirubin,Total 0.8 mg/dL (0.2-1.3); Blood Urea Nitrogen 21 mg/dL (7-17); Calcium 8.2 mg/dL (8.4-10.2); Carbon Dioxide 24 mmol/L (22-30); Chloride 103 mmol/L (98-107); Cholesterol 87 mg/dL (0-200); Estimated CRCL calculation 43 ml/min; Estimated Glomerular Filt Rate > 60; Glucose 216 mg/dL (65-110); HDL Direct 49 mg/dL; Magnesium 1.6 mg/dL (1.6-2.3); Potassium 5.9 mmol/L (3.4-5.0); Sodium 137 mmol/L (137-145); Triglycerides 84 mg/dL (<150)
[2022-05-13] MEDS: HOME MEDICATION 1 EACH XX (06:18)
[2022-05-13] MEDS: ACETAMINOPHEN 325 MG TABLET 650 MG PO (08:03)
[2022-05-13 08:40] LABS: LDL Cholesterol Direct < 30 mg/dL
--- NOTE | 2022-05-13 09:25 | PM.CNCAR ---
Assessment and Plan Assessment and plan (1) Peripheral vascular disease: Code(s): I73.9 - Peripheral vascular disease, unspecified Status: Acute (2) Troponin I above reference range: Code(s): R77.8 - Other specified abnormalities of plasma proteins Status: Acute Plan This is a 67-year-old lady who is chronically ill with some sort of connective tissue disorder who also has severe lower extremity peripheral vascular disease and chronic lung disease from previous smoking. She is reporting symptoms of positional shortness of breath of recent onset. She is not reporting any symptoms that in my opinion sound like an acute coronary syndrome and I would recommend discarding the diagnosis of a non ST elevation [place]. angiographically in the past she was found to have no significant coronary artery disease with some mild to moderate stenosis in the LAD that was not flow limiting by IFR testing. Because of her symptoms of positional dyspnea I am going to order an echocardiogram for today. Her hyperkalemia needs to be evaluated/treated and corrected. After this has been accomplished and rate looking at her echo we may consider Lexiscan stress testing while she is here to look for an ischemic burden. I am concerned that she has extensive enough peripheral disease by physical exam that she likely is not a reasonable candidate for an angiogram in this hospital. Will review her echo when it is done later in follow-up with you. Lalito Isaacs MD [facility] History of Present Illness History of Present Illness Consult date/time: 05/13/22 09:25 Reason For Visit: nstemi Narrative: This is a 67-year-old woman I am seeing this morning at the request of the hospitalist the stated reason for consultation is non ST-elevation [place]. she was transferred here yesterday from the emergency room in [place] where she was evaluated and transferred here because of need for cardiology consultation. She is unknown to me prior to this consultation but has been seen by my partners in the past. This is a lady known to have severe peripheral vascular disease, emphysema from previous smoking and a history of some sort of connective tissue disease the details of which are not well outlined in the record. She says that she has been having symptoms of shortness of breath and tightness in her chest when she lies down in the supine position and she thinks the symptoms began recently but she has a very hard time telling me for how long this has been going on. She does also have shortness of breath with walking for short distances but states this is a chronic complaint that she has had for a long time and that her physicians do not find pathology to explain it. She has a chronic left bundle branch block. She went to the emergency room in [place] was evaluated yesterday her troponin level is mildly elevated so she was transferred here for cardiology consultation. When I went in the room to see her this morning she was sleeping flat in bed in the left lateral decubitus position upon awakening she was lying supine/flat in bed and was in no distress of any kind. Her troponin levels here at [facility] are flat and in the range of 0.6. Her ECG shows a chronic left bundle branch block. She has records in the chart that indicate history of a previous peripheral vascular stent. I do not have any records of a stent procedure. My partner's, Dr. Ramirez and Dr Galindo have seen her in the past. I do have records of that evaluation that go back to 2012. She was evaluated at [facility] in the cardiac catheterization lab and found to have severe peripheral vascular disease with total occlusion of the proximal/mid right superficial femoral artery and 50-60% stenosis of the left common iliac and proximal left internal iliac with a significant gradient. Her lower extremity vessels were found to be diffusely narrowed and a very small caliber. She underwent successful balloon ang
[2022-05-13] MEDS: ISOSORBIDE MONONITRATE 30 MG TAB.ER.24H PO (09:33)
[2022-05-13] MEDS: CYCLOBENZAPRINE HCL 10 MG TABLET PO (09:33)
[2022-05-13] MEDS: ASPIRIN 81 MG ENTERIC TABLET PO (09:33)
[2022-05-13] MEDS: ATORVASTATIN 20 MG TABLET PO (09:33)
[2022-05-13] MEDS: SERTRALINE HCL 50 MG TABLET 100 MG PO (09:33)
[2022-05-13] MEDS: HYDROXYCHLOROQUINE SULFATE 200 MG TABLET PO (09:33)
[2022-05-13] MEDS: amLODIPine BESYLATE 5 MG TABLET PO (09:33)
[2022-05-13] MEDS: lisinopriL 5 MG TABLET PO (09:34)
--- NOTE | 2022-05-13 12:01 | PM.IMPN ---
Progress Note: A&P Assessment and Plan (1) Non-ST elevated myocardial infarction (non-STEMI): Code(s): I21.4 - Non-ST elevation (NSTEMI) myocardial infarction Status: Inactive Assessment and Plan: Appreciate Cardiology input. Echo ordered and will review. Possible Lexiscan stress test versus catheterization. Will defer to Cardiology (2) Pulmonary nodule: Code(s): R91.1 - Solitary pulmonary nodule Status: Acute Assessment and Plan: 1 centimeter spiculated ground-glass nodule at the left apex most likely infectious/ inflammatory per radiologist though with her smoking history we would recommend a three-month follow-up noncontrast chest CT. (3) Type 1 diabetes mellitus: Code(s): E10.9 - Type 1 diabetes mellitus without complications Status: Acute Assessment and Plan: Patient may use her home insulin pump. Check hemoglobin A1c. Initiate hypoglycemic protocol. (4) Hypothyroidism: Code(s): E03.9 - Hypothyroidism, unspecified Status: Acute Assessment and Plan: Continue levothyroxine and check TSH. (5) Hypertension: Code(s): I10 - Essential (primary) hypertension Status: Acute Assessment and Plan: Blood pressures were reviewed and they are stable. Continue antihypertensives and monitor. (6) Systemic lupus erythematosus related syndrome: Code(s): M32.9 - Systemic lupus erythematosus, unspecified Status: Acute Assessment and Plan: Continue hydroxychloroquine. (7) Peripheral vascular disease: Code(s): I73.9 - Peripheral vascular disease, unspecified Status: Acute Assessment and Plan: No acute issues. Continue statin. Subjective Date/time seen: 05/13/22 12:01 patient currently denies chest pain. Exam Narrative: General: Well-developed, thin female sitting up in bed in no distress. Weight: 51 kilograms. BMI: 19.9. HEENT: Normocephalic, atraumatic. PERRL, EOMI. Sclera anicteric. Oral mucosa moist. Oropharynx clear. Neck: Supple. No JVD. Faint left-sided bruit. Respiratory: Lungs are clear to auscultation bilaterally. Cardiovascular: Regular rate and rhythm with S1-S2. Gastrointestinal: Abdomen is soft, nontender, and nondistended with positive bowel sounds. Skin: Warm and dry although feet are cool with decreased capillary refill. Extremities: No cyanosis, clubbing, or edema. Radial pulses palpable, posterior tibialis decreased but pulses palpable. Neurological: Alert. Cranial nerves 2-12 are grossly intact. No gross focal deficits to casual conversation. Psychiatric: Pleasant and cooperative. Appropriate mood and affect. Objective Data Vital Signs Vital Signs: Vital Signs - 24 hr 05/12/22 17:11 05/12/22 18:32 05/12/22 18:50 Temperature 98.1 F Pulse Rate 76 74 Respiratory Rate 18 Blood Pressure 139/76 Pulse Oximetry 100 Oxygen Delivery Room Air 05/12/22 20:00 05/12/22 20:00 05/12/22 20:00 Temperature 97.2 F L Pulse Rate 71 71 73 Respiratory Rate 16 16 Blood Pressure 119/48 L Pulse Oximetry 99 99 Oxygen Delivery Room Air 05/12/22 22:00 05/12/22 22:56 05/12/22 23:33 Temperature 97.6 F Pulse Rate 73 74 75 Respiratory Rate 18 Blood Pressure 136/64 Pulse Oximetry 100 Oxygen Delivery 05/13/22 00:00 05/13/22 00:00 05/13/22 00:52 Temperature Pulse Rate 75 70 Respiratory Rate 18 Blood Pressure 102/56 L Pulse Oximetry 100 Oxygen Delivery Room Air 05/13/22 02:00 05/13/22 04:00 05/13/22 04:00 Temperature 97.6 F Pulse Rate 59 L 57 L 57 L Respiratory Rate 16 16 Blood Pressure 104/42 L Pulse Oximetry 99 99 Oxygen Delivery Room Air 05/13/22 04:00 05/13/22 06:00 05/13/22 08:00 Temperature 97.8 F Pulse Rate 56 L 60 61 Respiratory Rate 16 Blood Pressure 121/64 Pulse Oximetry 95 Oxygen Delivery 05/13/22 08:00 05/13/22 08:00 05/13/22 10:00 [facility]
[2022-05-13 12:29] LABS: Glucose Point of Care 130 mg/dl (65-105)
[2022-05-13 17:04] LABS: Glucose Point of Care 119 mg/dl (65-105)
[2022-05-13] MEDS: LATANOPROST 0.005% OP SOLN 2.5 ML BTL 1 DROP EACH EYE (17:13)
[2022-05-13 19:55] LABS: Glucose Point of Care 162 mg/dl (65-105)
[2022-05-13] MEDS: LORazepam (*CRX) 0.5 MG TABLET PO (21:06)
[2022-05-13] MEDS: ENOXAPARIN 60 MG/0.6 ML SYRINGE 50 MG SUB-Q (21:06)
[2022-05-14] VITALS (16 sets, daily range): BP systolic 91–134; BP diastolic 56–83; PULSE 61–72; RESP 16–20; TEMP 36.6–37; O2SAT 99–100
[2022-05-14] MEDS: LEVOTHYROXINE SODIUM 112 MCG TABLET PO (06:00)
[2022-05-14] MEDS: HOME MEDICATION 1 EACH XX (06:00)
[2022-05-14 08:01] LABS: Glucose Point of Care 158 mg/dl (65-105)
[2022-05-14] MEDS: SODIUM ZIRCONIUM CYCLOSILICATE 10 GM POWD.PACK PO (09:27)
[2022-05-14 09:32] LABS: Anion Gap 7 mmol/L (8-16); Blood Urea Nitrogen 22 mg/dL (7-17); Calcium 8.1 mg/dL (8.4-10.2); Carbon Dioxide 26 mmol/L (22-30); Chloride 105 mmol/L (98-107); Estimated CRCL calculation 48 ml/min; Estimated Glomerular Filt Rate > 60; Glucose 172 mg/dL (65-110); Potassium 4.6 mmol/L (3.4-5.0); Sodium 138 mmol/L (137-145)
--- NOTE | 2022-05-14 10:14 | PM.PNCARD ---
Progress Note: A&P Assessment and Plan (1) Cardiomyopathy: Code(s): I42.9 - Cardiomyopathy, unspecified Status: Acute Assessment and Plan: New diagnosis. EF 30-35% on echo from yesterday, previously 58% from echo at [facility] in June 2021. Also has some new RV dysfunction. She is not in decompensated heart failure on exam at this time. Will initiate GDMT for cardiomyopathy with: Entresto 24-26 after 36 hour WU washout (can start Entresto 05/15 p.m.) Spironolactone 12.5mg daily Jardiance 10mg daily. Discussed the risk of genital yeast infection with her and to monitor closely for s/s of this and to notify associate doctor if any symptoms occur. Coreg 3.125 b.i.d. Lexiscan tomorrow to evaluate for possible ischemic etiology - angiographically in the past she was found to have no significant coronary artery disease with some mild to moderate stenosis in the LAD that was not flow limiting by IFR testing. (as detailed by Dr. Isaacs, due to patient's extensive lower extremity vascular disease probably not a candidate for coronary angiogram here) (2) Troponin I above reference range: Code(s): R77.8 - Other specified abnormalities of plasma proteins Status: Acute (3) Peripheral vascular disease: Code(s): I73.9 - Peripheral vascular disease, unspecified Status: Acute Subjective Date/time seen: 05/14/22 10:14 Cardiology follow up for elevated troponin, cardiomyopathy Feels ok today but is fatigued. States she had some shortness of breath with walking to the bathroom and felt very tired afterwards. Denies any chest pain or palpitations. She is able to lie flat. Review of Systems Constitutional: Constitutional: Reports lethargy Eyes: Eyes: Reports no additional eye complaints ENT: Reports system reviewed and no additional complaints, except as documented Cardiovascular: Cardiovascular: Reports no additional cardiovascular complaints and Reports dyspnea on exertion Respiratory: Respiratory: Reports dyspnea on exertion Gastrointestinal: Gastrointestinal: Reports no additional gastrointestinal complaints Musculoskeletal: Musculoskeletal: Reports myalgias Integumentary/Breasts: Skin/Breast: Reports system reviewed and no additional complaints, except as docu Neurologic: Reports system reviewed and no additional complaints, except as documented Endocrine: Endocrine: Reports no additional endocrine complaints Hematologic/Lymphatic: Hematologic/Lymphatic: Reports no additional hematologic/lymphatic complaints Allergic/Immunologic: Allergic/Immunologic: Reports no additional allergic/immunologic complaints Exam Const: General: comfortable Other: Thin underweight, chronically ill-appearing white female pleasant cooperative no distress HENMT: Mouth: Yes moist mucous membranes Eyes: Sclera: sclerae normal Pupils: Equal, round and reactive pupils present Neck: Neck: supple and no JVD Other: No carotid bruits bilateral Resp: Effort & Inspection: normal respiratory effort Auscultation: diminished lung sounds Other: Breath sounds diminished bilaterally Cardio: Rate: regular rate Rhythm: regular rhythm Other: PMI is not displaced no murmur or gallop is audible GI: Auscultation: normal bowel sounds Skin: General skin exam: normal color Neuro: Cranial nerves: Yes Equal, round and reactive pupils present Other: Alert and oriented x3 Extrem: Other: No peripheral edema, distal pulses are not appreciable below the femoral triangles Objective Data Vital Signs Vital Signs: Vital Signs - 24 hr 05/13/22 12:00 05/13/22 12:00 05/13/22 12:00 Temperature 36.1 C L Pulse Rate 59 L 60 Respiratory Rate 16 Blood Pressure 119/66 Pulse Oximetry 100 Oxygen Delivery Room Air 05/13/22 14:00 05/13/22 16:00 05/13/22 16:00 Temperature Pulse Rate 63 60 Respiratory Rate Blood Pressure Pulse Oximetry Oxygen Delivery Room Air 05/13/22
[2022-05-14] MEDS: ISOSORBIDE MONONITRATE 30 MG TAB.ER.24H PO (11:22)
[2022-05-14] MEDS: ASPIRIN 81 MG ENTERIC TABLET PO (11:22)
[2022-05-14] MEDS: SERTRALINE HCL 50 MG TABLET 100 MG PO (11:22)
[2022-05-14] MEDS: ENOXAPARIN 60 MG/0.6 ML SYRINGE 50 MG SUB-Q ×2 (11:24→20:49)
[2022-05-14] MEDS: ATORVASTATIN 20 MG TABLET PO (11:24)
[2022-05-14] MEDS: HYDROXYCHLOROQUINE SULFATE 200 MG TABLET PO (11:24)
--- NOTE | 2022-05-14 11:45 | PM.IMPN ---
Progress Note: A&P Assessment and Plan (1) Non-ST elevated myocardial infarction (non-STEMI): Code(s): I21.4 - Non-ST elevation (NSTEMI) myocardial infarction Status: Inactive Assessment and Plan: Appreciate Cardiology input. Echo Resulted and shows a combined diastolic and systolic CHF. Further workup and management per Cardiology. (2) Pulmonary nodule: Code(s): R91.1 - Solitary pulmonary nodule Status: Acute Assessment and Plan: 1 centimeter spiculated ground-glass nodule at the left apex most likely infectious/ inflammatory per radiologist though with her smoking history we would recommend a three-month follow-up noncontrast chest CT. (3) Type 1 diabetes mellitus: Code(s): E10.9 - Type 1 diabetes mellitus without complications Status: Acute Assessment and Plan: Patient may use her home insulin pump. Check hemoglobin A1c. Initiate hypoglycemic protocol. (4) Hypothyroidism: Code(s): E03.9 - Hypothyroidism, unspecified Status: Acute Assessment and Plan: Continue levothyroxine and check TSH. (5) Hypertension: Code(s): I10 - Essential (primary) hypertension Status: Acute Assessment and Plan: Blood pressures were reviewed and they are stable. Continue antihypertensives and monitor. (6) Systemic lupus erythematosus related syndrome: Code(s): M32.9 - Systemic lupus erythematosus, unspecified Status: Acute Assessment and Plan: Continue hydroxychloroquine. (7) Peripheral vascular disease: Code(s): I73.9 - Peripheral vascular disease, unspecified Status: Acute Assessment and Plan: No acute issues. Continue statin. (8) CHF (congestive heart failure): Code(s): I50.9 - Heart failure, unspecified Status: Acute Assessment and Plan: combined systolic and diastolic. Patient does have diastolic dysfunction EF is noted to be 30-35%. At this time she appears to be relatively euvolemic. Cardiology is following and managing. Medications being managed per Cardiology. Subjective Date/time seen: 05/14/22 11:45 patient denies any acute issues this morning. Patient reports some mild shortness of breath with activity. Nothing severe. Exam Narrative: General: Well-developed, thin female sitting up in bed in no distress. Weight: 51 kilograms. BMI: 19.9. HEENT: Normocephalic, atraumatic. PERRL, EOMI. Sclera anicteric. Oral mucosa moist. Oropharynx clear. Neck: Supple. No JVD. Faint left-sided bruit. Respiratory: Lungs are clear to auscultation bilaterally. Cardiovascular: Regular rate and rhythm with S1-S2. Gastrointestinal: Abdomen is soft, nontender, and nondistended with positive bowel sounds. Skin: Warm and dry although feet are cool with decreased capillary refill. Extremities: No cyanosis, clubbing, or edema. Radial pulses palpable, posterior tibialis decreased but pulses palpable. Neurological: Alert. Cranial nerves 2-12 are grossly intact. No gross focal deficits to casual conversation. Psychiatric: Pleasant and cooperative. Appropriate mood and affect. Objective Data Vital Signs Vital Signs: Vital Signs - 24 hr 05/13/22 12:00 05/13/22 12:00 05/13/22 12:00 Temperature 97.0 F L Pulse Rate 59 L 60 Respiratory Rate 16 Blood Pressure 119/66 Pulse Oximetry 100 Oxygen Delivery Room Air 05/13/22 14:00 05/13/22 16:00 05/13/22 16:00 Temperature Pulse Rate 63 60 Respiratory Rate Blood Pressure Pulse Oximetry Oxygen Delivery Room Air 05/13/22 16:00 05/13/22 17:49 05/13/22 20:00 Temperature 97.3 F L 97.8 F Pulse Rate 59 L 67 63 Respiratory Rate 20 16 Blood Pressure 117/42 L 114/63 Pulse Oximetry 100 98 Oxygen Delivery 05/13/22 20:00 05/13/22 20:00 05/13/22 21:56 Temperature Pulse Rate 63 63 60 Respiratory Rate 16 Blood Pressure Pulse Oximetry 98 Oxygen Deli
[2022-05-14 11:55] LABS: Glucose Point of Care 166 mg/dl (65-105)
[2022-05-14] MEDS: amLODIPine BESYLATE 5 MG TABLET PO (12:43)
[2022-05-14] MEDS: FUROSEMIDE 40 MG TABLET PO (12:43)
[2022-05-14 16:12] LABS: Glucose Point of Care 170 mg/dl (65-105)
[2022-05-14 19:54] LABS: Glucose Point of Care 203 mg/dl (65-105)
[2022-05-14] MEDS: CYCLOBENZAPRINE HCL 10 MG TABLET PO (20:49)
[2022-05-14] MEDS: LORazepam (*CRX) 0.5 MG TABLET PO (20:49)
[2022-05-14] MEDS: LATANOPROST 0.005% OP SOLN 2.5 ML BTL 1 DROP EACH EYE (20:50)
[2022-05-15] VITALS (14 sets, daily range): BP systolic 128–146; BP diastolic 53–69; PULSE 68–82; RESP 16–20; TEMP 36.1–36.7; O2SAT 95–100
[2022-05-15] MEDS: LEVOTHYROXINE SODIUM 112 MCG TABLET PO (05:48)
[2022-05-15] MEDS: HOME MEDICATION 1 EACH XX (06:09)
[2022-05-15 08:45] LABS: Glucose Point of Care 161 mg/dl (65-105)
[2022-05-15] MEDS: ATORVASTATIN 40 MG TABLET PO (08:46)
[2022-05-15] MEDS: ASPIRIN 81 MG ENTERIC TABLET PO (08:46)
[2022-05-15] MEDS: HYDROXYCHLOROQUINE SULFATE 200 MG TABLET PO (08:47)
[2022-05-15] MEDS: amLODIPine BESYLATE 5 MG TABLET PO (08:47)
[2022-05-15] MEDS: ISOSORBIDE MONONITRATE 30 MG TAB.ER.24H PO (08:49)
[2022-05-15] MEDS: SERTRALINE HCL 50 MG TABLET 100 MG PO (08:49)
[2022-05-15] MEDS: BETAMETHASONE/CLOTRIMAZOLE CR 15 GM TUBE 1 APPLIC TOPICAL (08:50)
[2022-05-15] MEDS: FLUTICASONE PROPIONATE 0.05% NA SPR 16 GM BTL (*BKC) NASAL (08:52)
[2022-05-15 09:10] LABS: Alanine Aminotransferase 100 U/L (6-35); Albumin Level 3.5 g/dL (3.5-5.1); Alkaline Phosphatase 140 U/L (38-126); Anion Gap 8 mmol/L (8-16); Aspartate Amino Transferase 145 U/L (14-36); Bilirubin,Total 0.6 mg/dL (0.2-1.3); Blood Urea Nitrogen 16 mg/dL (7-17); Calcium 7.7 mg/dL (8.4-10.2); Carbon Dioxide 29 mmol/L (22-30); Chloride 103 mmol/L (98-107); Estimated CRCL calculation 55 ml/min; Estimated Glomerular Filt Rate > 60; Glucose 153 mg/dL (65-110); Potassium 3.6 mmol/L (3.4-5.0); Sodium 140 mmol/L (137-145)
--- NOTE | 2022-05-15 10:13 | PM.IMPN ---
Progress Note: A&P Assessment and Plan (1) CHF (congestive heart failure): Code(s): I50.9 - Heart failure, unspecified Status: Acute Assessment and Plan: Patient presents with SOB and CP. Concern for CHF. Echo showing EF 30-35% with diastolic dysfunction with evidence of volume overload. RV systolic function reduced. Patient with acute combined systolic and diastolic CHF. She was treated with Lasix IV once. She feels better but still with THOMAS. CT chest showing CMG, pulmonary edea, and bilateral pleural effusions. Empagliflozin, Spironolactone started. Lisinopril being changed to Entresto. BBlocker being considered. Consider also adding diuretic chronically. Discussed with Cardiology (2) Non-ST elevated myocardial infarction (non-STEMI): Code(s): I21.4 - Non-ST elevation (NSTEMI) myocardial infarction Status: Inactive Assessment and Plan: Troponin peaked at 0.74. EKG showing LBBB. Per cardiology, not felt to have NSTEMI. Elevated Trop probably related to the combined diastolic and systolic CHF. Treatment as above. Appreciate Cardiology input. Stress test ordered. (3) Pulmonary nodule: Code(s): R91.1 - Solitary pulmonary nodule Status: Acute Assessment and Plan: DDimer was positive. CTA chest negative for PE but shows a 1 centimeter spiculated ground-glass nodule at the left apex most likely infectious/ inflammatory per radiologist though with her smoking history we would recommend a three-month follow-up noncontrast chest CT. Will treat with abx. (4) DVT (deep venous thrombosis): Code(s): I82.409 - Acute embolism and thrombosis of unspecified deep veins of unspecified lower extremity Status: Acute Assessment and Plan: DDimer was positive on admission. LE venous doppler showing right peroneal DVT. Young Harris DVT was present on admission. She has been on lovenox therapeutic dose since admission. Continue the same. Transition to Eliquis when okay with Cardiology. (5) Type 1 diabetes mellitus: Code(s): E10.9 - Type 1 diabetes mellitus without complications Status: Acute Assessment and Plan: A1c 9.1. The patient's blood glucose was reviewed on 05/15 Glucose remains reasonably well controlled. Continue AccuCheks covering with sliding scale. Hypoglycemia protocol available as needed. Continue her home insulin pump. (6) Hypothyroidism: Code(s): E03.9 - Hypothyroidism, unspecified Status: Acute Assessment and Plan: TSH normal. Continue levothyroxine. (7) Hypertension: Code(s): I10 - Essential (primary) hypertension Status: Acute Assessment and Plan: Patient's blood pressure was reviewed on 05/15 Blood pressure remains well controlled. Will continue current medications. Did discuss stopping Norvasc with Cardiology (8) Systemic lupus erythematosus related syndrome: Code(s): M32.9 - Systemic lupus erythematosus, unspecified Status: Acute Assessment and Plan: Stable. Continue hydroxychloroquine. (9) Peripheral vascular disease: Code(s): I73.9 - Peripheral vascular disease, unspecified Status: Acute Assessment and Plan: No acute issues. Carotid doppler showing 50-69% Right and <50% on Left ICA stenosis. There is antegrade flow in bilateral vertebral. She was made aware and recommended she discuss this with her vascular surgeon. Explained that they can request records for this. Continue statin and would increase the dose. She does have elevated LFTs felt related to hepatic congestion possibly. AST always mildly elevated so may have underlying NAFLD. Check for viral hepatitis and RUQ US. Hold Lipitor for now. (10) Elevated LFTs: Code(s): R79.89 - Other specified abnormal findings of blood chemistry Status: Acute Assessment and Plan: As above Subjective Date/time seen: 05/15/22 10:13 Interval history: 67yo female wi
--- NOTE | 2022-05-15 11:35 | PM.PNCARD ---
Progress Note: A&P Assessment and Plan (1) Cardiomyopathy: Qualifiers: Cardiomyopathy type: other Qualified Code(s): I42.8 - Other cardiomyopathies Code(s): I42.9 - Cardiomyopathy, unspecified Status: Acute Assessment and Plan: New diagnosis. EF 30-35% on echo from yesterday, previously 58% from echo at [facility] in June 2021. Also has some new RV dysfunction. She is not in decompensated heart failure on exam at this time. Will initiate GDMT for cardiomyopathy with: Start Entresto after 36 hour [facility]U washout this evening 05/15 Spironolactone 12.5mg daily Jardiance 10mg daily. Discussed the risk of genital yeast infection with her and to monitor closely for s/s of this and to notify remote operations producer if any symptoms occur. Coreg 3.125 b.i.d. Lexiscan today, results pending. She was still require coronary angiographically regardless, however, for example if severe large area of anterior ischemia will discuss timing in appropriate management in this regard given very high risk status. Therefore utility of noninvasive ischemic evaluation only for further risk stratification. Discussed with patient. She verbalized understanding In the past she was found to have nonobstructive coronary artery disease with mild to moderate stenosis in the LAD that was not flow limiting by IFR testing. ( Dr. Isaacs previously concluded due to patient's extensive lower extremity vascular disease probably not a candidate for coronary angiogram at this institution). Further recommendations as appropriate after review of perfusion imaging. She has follow-up scheduled May 24 with [facility] at [facility]. (2) CHF (congestive heart failure): Qualifiers: Heart failure type: systolic Heart failure chronicity: acute Qualified Code(s): I50.21 - Acute systolic (congestive) heart failure Code(s): I50.9 - Heart failure, unspecified Status: Acute Assessment and Plan: Heart failure with reduced ejection fraction nearing euvolemia. Optimize medical therapy. Discontinue amlodipine. (3) Troponin I above reference range: Code(s): R77.8 - Other specified abnormalities of plasma proteins Status: Acute Assessment and Plan: Stable, felt to be more likely type 2 infarction not secondary to acute coronary syndrome and or NSTEMI with acute plaque rupture but related to decompensated heart failure and LV dysfunction (4) Peripheral vascular disease: Code(s): I73.9 - Peripheral vascular disease, unspecified Status: Acute Assessment and Plan: History of extensive PAD with peripheral interventions followed by Dr. Gilliland at [place]. (5) DVT (deep venous thrombosis): Code(s): I82.409 - Acute embolism and thrombosis of unspecified deep veins of unspecified lower extremity Status: Acute Assessment and Plan: New diagnosis left peroneal DVT. She has been on full systemic anticoagulation since admission, therefore, highly likely thrombosis present prior to admission. CT PE protocol at admission revealed no pulmonary embolism. Patient high risk for thromboembolic complications. Systemic anticoagulation reasonable. (6) Left bundle branch block: Code(s): I44.7 - Left bundle-branch block, unspecified Status: Acute Assessment and Plan: Chronic, stable. (7) Type 1 diabetes mellitus: Code(s): E10.9 - Type 1 diabetes mellitus without complications Status: Acute Assessment and Plan: Per hospitalist service. Subjective Date/time seen: Date of service: 05/15/22 11:35 Follow-up for cardiomyopathy, elevated troponin Patient denies chest pain, shortness of breath with ambulation. No new issues overnight. Lexiscan this morning results pending. Patient seen and examined in the stress lab at bedside. Lower extremity venous Dopplers revealed right peroneal DVT. No ventricular arrhythmias overnight. Review o
--- NOTE | 2022-05-15 11:44 | EST_ITS ---
Patient Info Name: Bettye Thrasher Age: 67 years : 1955 Gender: Female Ht: 63 in Wt: 112 lbs BSA: 1.50 m2 Exam Date: 05/15/2022 10:40 AM Exam Location: [facility] Stress Patient Status: Inpatient Admit Date: 05/12/2022 Staff Ordering Physician: Yuly Higginbotham Attending Provider: Demar Figueroa MD Exercise Technologist: Matthew Tejeda RDCS, RT Exercise Physician: Yovani Bojorquez MD Exam Type: CA stress tammi w NM Study Info A regadenoson stress test was performed. Summary 1. No chest discomfort with stress test. 2. Occasional Lexiscan induced PACs. 3. Non-diagnostic ECG due to left bundle branch block. 4. Please correlate with nuclear medicine images, reported separately. Protocol: Lexiscan Stress ECG Details Stage: REST Duration (min): 2 min : 54 sec HR (bpm): 72 SBP (mmHg): 153 DBP (mmHg): 74 Stage: REST Duration (min): 5 min : 5 sec HR (bpm): 71 SBP (mmHg): 153 DBP (mmHg): 74 Stage: STAGE 1 Duration (min): 1 min : 0 sec HR (bpm): 73 SBP (mmHg): 157 DBP (mmHg): 71 Stage: RECOVERY Duration (min): 1 min : 0 sec HR (bpm): 79 SBP (mmHg): 157 DBP (mmHg): 71 Stage: RECOVERY Duration (min): 2 min : 0 sec HR (bpm): 78 SBP (mmHg): 157 DBP (mmHg): 71 Stage: RECOVERY Duration (min): 3 min : 0 sec HR (bpm): 77 SBP (mmHg): 145 DBP (mmHg): 67 Stage: RECOVERY Duration (min): 3 min : 31 sec HR (bpm): 76 SBP (mmHg): 145 DBP (mmHg): 67 Rest HR: 71 bpm Peak HR: 79 bpm Rest Sys BP: 153 mmHg Peak Sys BP: 157 mmHg Max Pred HR: 154 bpm % Max Pred HR: 51 % Target HR: 131 bpm Max RPP: 12,403 bpm*mmHg Termination Reason: Completed protocol Total Time: 1 min : 0 sec Rest Steinberg BP: 74 mmHg Peak Steinberg BP: 71 mmHg Total Dose: 0.4 mg Resting ECG Normal sinus rhythm. first degree AV block, LBBB. Stress ECG Non-diagnostic ECG due to left bundle branch block. Arrhythmias Occasional Lexiscan induced PACs. Report Signatures
[2022-05-15] MEDS: ENOXAPARIN 60 MG/0.6 ML SYRINGE 50 MG SUB-Q ×2 (11:51→20:11)
[2022-05-15] MEDS: CEFDINIR 300 MG CAPSULE PO ×2 (11:55→20:10)
[2022-05-15 12:02] LABS: Glucose Point of Care 117 mg/dl (65-105)
[2022-05-15] MEDS: SPIRONOLACTONE 12.5 MG TABLET PO (13:02)
[2022-05-15] MEDS: EMPAGLIFLOZIN 10 MG TABLET PO (13:02)
[2022-05-15 17:27] LABS: Glucose Point of Care 173 mg/dl (65-105)
[2022-05-15 20:05] LABS: Glucose Point of Care 147 mg/dl (65-105)
[2022-05-15] MEDS: CYCLOBENZAPRINE HCL 10 MG TABLET PO (20:10)
[2022-05-15] MEDS: LORazepam (*CRX) 0.5 MG TABLET PO (20:10)
[2022-05-15] MEDS: LATANOPROST 0.005% OP SOLN 2.5 ML BTL 1 DROP EACH EYE (20:11)
[2022-05-16] VITALS (7 sets, daily range): BP systolic 139–151; BP diastolic 53–70; PULSE 70–97; RESP 16–18; TEMP 35.7–36.6; O2SAT 91–99
[2022-05-16 04:47] LABS: Hematocrit 35.3 % (37.0-47.0); Hemoglobin 10.6 g/dL (12.0-15.0); Mean Corpuscular Hemoglobin 23.7 pg (26-34); Mean Corpuscular Volume 78.8 fl (80-100); Mean Platelet Volume 10.8 fl (7.4-10.4); Platelet Count Result 261 k/mm3 (150-375); Red Blood Count 4.48 M/mm3 (4.2-5.4); Red Cell Distribution Width 17.7 % (11.5-14.5); White Blood Count 3.6 K/mm3 (4.5-10.0)
[2022-05-16 05:03] LABS: Alanine Aminotransferase 87 U/L (6-35); Alkaline Phosphatase 129 U/L (38-126); Anion Gap 6 mmol/L (8-16); Aspartate Amino Transferase 118 U/L (14-36); Bilirubin,Total 0.5 mg/dL (0.2-1.3); Blood Urea Nitrogen 12 mg/dL (7-17); Calcium 7.5 mg/dL (8.4-10.2); Carbon Dioxide 28 mmol/L (22-30); Chloride 106 mmol/L (98-107); Estimated CRCL calculation 56 ml/min; Estimated Glomerular Filt Rate > 60; Glucose 152 mg/dL (65-110); Potassium 3.4 mmol/L (3.4-5.0); Sodium 140 mmol/L (137-145)
[2022-05-16] MEDS: LEVOTHYROXINE SODIUM 112 MCG TABLET PO (06:05)
[2022-05-16] MEDS: HOME MEDICATION 1 EACH XX (06:35)
[2022-05-16 07:49] LABS: Glucose Point of Care 161 mg/dl (65-105)
[2022-05-16] MEDS: SERTRALINE HCL 50 MG TABLET 100 MG PO (09:09)
[2022-05-16] MEDS: ASPIRIN 81 MG ENTERIC TABLET PO (09:10)
[2022-05-16] MEDS: CEFDINIR 300 MG CAPSULE PO (09:10)
[2022-05-16] MEDS: EMPAGLIFLOZIN 10 MG TABLET PO (09:10)
[2022-05-16] MEDS: ISOSORBIDE MONONITRATE 30 MG TAB.ER.24H PO (09:10)
[2022-05-16] MEDS: SPIRONOLACTONE 12.5 MG TABLET PO (09:10)
[2022-05-16] MEDS: HYDROXYCHLOROQUINE SULFATE 200 MG TABLET PO (09:10)
[2022-05-16] MEDS: ENOXAPARIN 60 MG/0.6 ML SYRINGE 50 MG SUB-Q (09:10)
[2022-05-16] MEDS: BETAMETHASONE/CLOTRIMAZOLE CR 15 GM TUBE 1 APPLIC TOPICAL (09:10)
--- NOTE | 2022-05-16 10:17 | PM.PNCARD ---
Progress Note: A&P Assessment and Plan (1) Cardiomyopathy: Qualifiers: Cardiomyopathy type: other Qualified Code(s): I42.8 - Other cardiomyopathies Code(s): I42.9 - Cardiomyopathy, unspecified Status: Acute Assessment and Plan: New diagnosis. EF 30-35% on echo from yesterday, previously 58% from echo at [facility] in June 2021. Also has some new RV dysfunction. She is not in decompensated heart failure on exam at this time. Will initiate GDMT for cardiomyopathy with: Start Entresto 24-26 Spironolactone 12.5mg daily Jardiance 10mg daily. Discussed the risk of genital yeast infection with her and to monitor closely for s/s of this and to notify chemical processing technician if any symptoms occur. Coreg 3.125 b.i.d. Lexiscan showed small to moderate-sized moderate severity infarct involving the apical septal, mid anteroseptal and basilar anteroseptal segments with associated paradoxical septal wall motion. No further invasive workup recommended at this time She has follow-up scheduled May 24 with [facility] at [facility]. OK for discharge today from a cardiac standpoint (2) CHF (congestive heart failure): Qualifiers: Heart failure chronicity: acute Heart failure type: systolic Qualified Code(s): I50.21 - Acute systolic (congestive) heart failure Code(s): I50.9 - Heart failure, unspecified Status: Acute Assessment and Plan: Heart failure with reduced ejection fraction. Appears euvolemic. Optimize medical therapy. (3) Troponin I above reference range: Code(s): R77.8 - Other specified abnormalities of plasma proteins Status: Acute Assessment and Plan: Stable, felt to be more likely type 2 infarction not secondary to acute coronary syndrome and or NSTEMI with acute plaque rupture but related to decompensated heart failure and LV dysfunction (4) Peripheral vascular disease: Code(s): I73.9 - Peripheral vascular disease, unspecified Status: Acute Assessment and Plan: History of extensive PAD with peripheral interventions followed by Dr. Gilliland at [place]. (5) DVT (deep venous thrombosis): Code(s): I82.409 - Acute embolism and thrombosis of unspecified deep veins of unspecified lower extremity Status: Acute Assessment and Plan: New diagnosis left peroneal DVT. She has been on full systemic anticoagulation since admission, therefore, highly likely thrombosis present prior to admission. CT PE protocol at admission revealed no pulmonary embolism. Patient high risk for thromboembolic complications. Systemic anticoagulation reasonable. (6) Left bundle branch block: Code(s): I44.7 - Left bundle-branch block, unspecified Status: Acute Assessment and Plan: Chronic, stable. (7) Type 1 diabetes mellitus: Code(s): E10.9 - Type 1 diabetes mellitus without complications Status: Acute Assessment and Plan: Per hospitalist service. Subjective Date/time seen: 05/16/22 10:17 Cardiology follow up for cardiomyopathy Interval history: Feeling well today. No complaints of any kind. Denies any chest pain or shortness of breath. Review of Systems Constitutional: Constitutional: Reports fatigue and Reports lethargy Eyes: Eyes: Reports no additional eye complaints ENT: Reports system reviewed and no additional complaints, except as documented Cardiovascular: Cardiovascular: Reports no additional cardiovascular complaints and Reports dyspnea on exertion Respiratory: Respiratory: Reports dyspnea on exertion Gastrointestinal: Gastrointestinal: Reports no additional gastrointestinal complaints Musculoskeletal: Musculoskeletal: Denies myalgias Integumentary/Breasts: Skin/Breast: Reports system reviewed and no additional complaints, except as docu Neurologic: Reports system reviewed and no additional complaints, except as documented and Denies confusion Psychiatric: P
--- NOTE | 2022-05-16 11:19 | PM.DS ---
DS: Admitting Diagnosis Discharge Date 05/16/22 Admitting Diagnosis Chest pain and shortness of breath DS: Discharge Diagnosis Discharge Diagnosis (1) CHF (congestive heart failure): Qualifiers: Heart failure type: systolic Heart failure chronicity: acute Qualified Code(s): I50.21 - Acute systolic (congestive) heart failure Code(s): I50.9 - Heart failure, unspecified Status: Acute (2) Non-ST elevated myocardial infarction (non-STEMI): Code(s): I21.4 - Non-ST elevation (NSTEMI) myocardial infarction Status: Inactive (3) Pulmonary nodule: Code(s): R91.1 - Solitary pulmonary nodule Status: Acute (4) DVT (deep venous thrombosis): Code(s): I82.409 - Acute embolism and thrombosis of unspecified deep veins of unspecified lower extremity Status: Acute (5) Type 1 diabetes mellitus: Code(s): E10.9 - Type 1 diabetes mellitus without complications Status: Acute (6) Hypothyroidism: Code(s): E03.9 - Hypothyroidism, unspecified Status: Acute (7) Hypertension: Code(s): I10 - Essential (primary) hypertension Status: Acute (8) Systemic lupus erythematosus related syndrome: Code(s): M32.9 - Systemic lupus erythematosus, unspecified Status: Acute (9) Peripheral vascular disease: Code(s): I73.9 - Peripheral vascular disease, unspecified Status: Acute (10) Elevated LFTs: Code(s): R79.89 - Other specified abnormal findings of blood chemistry Status: Acute DS: Summary Hospital Course Reason for hospitalization: 67yo female with CAD, DM, HTN, SLE and PVD here for CP and SOB. She was found to have elevated Trop at the OSH and transferred here. Please see H&P for details Hospital Course: Patient presents with SOB and CP. Concern for CHF. Echo showing EF 30-35% with diastolic dysfunction with evidence of volume overload. RV systolic function reduced. Patient with acute combined systolic and diastolic CHF. DDimer was positive. She was treated with Lasix IV once. CT chest showing CMG, pulmonary edema, and bilateral pleural effusions but no PE. Empagliflozin, Spironolactone started. Lisinopril was changed to Entresto. Coreg added. LE doppler noted a right peroneal DVT. She was on estrogen on admission that was stopped. She was on therapeutic Lovenox since admission and had positive DDImer early in her course so suspect the DVT was present on admission. Troponin peaked at 0.74. EKG showing (chronic) LBBB. Per cardiology, not felt to have NSTEMI but elevated Trop probably Type II related to the?combined diastolic and systolic CHF. Lexiscan Stress test showing small to moderate-sized moderate severity infarct involving the apical septal, mid anteroseptal and basilar anteroseptal segments with associated paradoxical septal wall motion.? No further invasive workup was recommended at this time. CTA chest did shows a 1 centimeter spiculated ground-glass nodule at the left apex most likely infectious/ inflammatory per radiologist though with her smoking history we would recommend a three-month follow-up noncontrast chest CT. We added a course of abx. LFTs mildly elevated felt related to hepatic congestion. Levels trending down. She had clincial improvement. She was able to be discharged home on 05/16/22. Status at Discharge Cognitive/behavioral status at discharge: Stable Time Spent with Patient Time attestation: Total time spent providing and/or coordinating discharge services: 35 minutes Time spent: Greater than 30 minutes Exam Narrative: AF 96.4 149/68 79 18 99% ra Gen - NARD Chest - CTA bilaterally CV - RRR S1/S2 Abd - Soft, NT/ND, Positive BS Ext - No pedal edema. 1+ DP pulses Psych - Nml mood and affect Skin - feet are warm and dry. red discoloration to her distal feet bilaterally. DS: Data Data Completed and Pending Labs on day of discharge: Labs from last 24 hours 05/16/22 10
[2022-05-16] MEDS: SACUBITRIL/VALSARTAN 24-26 MG TABLET 1 TAB PO (11:25)
[2022-05-16 12:26] LABS: Glucose Point of Care 164 mg/dl (65-105)
== END 2022-05-16 13:38 | disposition home or self-care (01) | DRG 280 ==
PROVIDERS: Chiropractor; Physician Assistant; Admitting Provider Internal Medicine; PCP Internal Medicine; Visit Provider Internal Medicine
DX: I11.0 Hypertensive heart disease with heart failure (principal); I50.41 Acute combined systolic (congestive) and diastolic (congestive) heart failure; I21.A1 Myocardial infarction type 2; I82.451 Acute embolism and thrombosis of right peroneal vein; I42.8 Other cardiomyopathies; I44.7 Left bundle-branch block, unspecified; R91.1 Solitary pulmonary nodule; I25.10 Atherosclerotic heart disease of native coronary artery without angina pectoris; E03.9 Hypothyroidism, unspecified; M32.9 Systemic lupus erythematosus, unspecified; I73.9 Peripheral vascular disease, unspecified; J43.9 Emphysema, unspecified; E78.5 Hyperlipidemia, unspecified; F41.9 Anxiety disorder, unspecified; E87.5 Hyperkalemia; E10.319 Type 1 diabetes mellitus with unspecified diabetic retinopathy without macular edema; E06.3 Autoimmune thyroiditis; E10.42 Type 1 diabetes mellitus with diabetic polyneuropathy; H40.9 Unspecified glaucoma; K76.1 Chronic passive congestion of liver; I73.00 Raynaud's syndrome without gangrene; M16.10 Unilateral primary osteoarthritis, unspecified hip; Z95.5 Presence of coronary angioplasty implant and graft; Z90.49 Acquired absence of other specified parts of digestive tract; Z95.820 Peripheral vascular angioplasty status with implants and grafts; Z87.891 Personal history of nicotine dependence; Z79.4 Long term (current) use of insulin
CPT/HCPCS: 36415; 76705; 78452; 80048; 80053; 80061; 80074; 82948; 83036; 83735; 84145; 84443; 84484; 85027; 86140; 93005; 93017; 93306; 93880; 93970; A9270; A9502; J1650; J2785; J3250

== ENCOUNTER 2022-05-23 12:58 | Outpatient (CLI) | payer MEDICARE, SELFPAY ==
[2022-05-23 13:34] LABS: Alanine Aminotransferase 57 U/L (14-59); Albumin Level 3.5 g/dL (3.4-5.0); Alkaline Phosphatase 102 U/L (46-116); Anion Gap 5 mmol/L (8-16); Aspartate Amino Transferase 70 U/L (15-37); Bilirubin,Total 0.3 mg/dL (0.00-1.00); Blood Urea Nitrogen 15 mg/dL (7-18); Calcium 8.7 mg/dL (8.5-10.1); Carbon Dioxide 28 mmol/L (21-32); Chloride 108 mmol/L (98-108); Estimated Glomerular Filt Rate 52; Glucose 169 mg/dL (70-99); Osmolality Calculated 296 mOsm/kg (285-295); Sodium 141 mmol/L (136-145); Total Protein 7.2 g/dL (6.4-8.2)
== END 2022-05-23 12:59 | disposition home or self-care (01) ==
LOC: CHSLAB 13:01
PROVIDERS: PCP Internal Medicine; Visit Provider Internal Medicine
DX: R91.1 Solitary pulmonary nodule (principal); R79.89 Other specified abnormal findings of blood chemistry
CPT/HCPCS: 36415; 80053

== ENCOUNTER 2022-05-24 10:21 | Outpatient (CLI) | payer MEDICARE, SELFPAY ==
[2022-05-24 10:37] LABS: Basophils Percent Auto 1.9 % (0.0-1.0); Eosinophils Absolute Auto 0.03 K/mm3 (0.02-0.50); Eosinophils Percent Auto 0.6 % (1.0-6.0); Hematocrit 41.2 % (35.0-42.0); Hemoglobin 12.4 g/dL (11.7-13.8); Immature Granulocyte Absolute 0.02 K/mm3 (0.00-0.00); Immature Granulocyte Percent A 0.4 % (0.0-0.0); Lymphocytes Absolute Auto 1.62 K/mm3 (1.10-4.50); Mean Corpuscular HGB Conc 30.1 g/dL (32.0-36.0); Mean Corpuscular Hemoglobin 23.6 pg (27.0-31.0); Mean Corpuscular Volume 78.5 fL (78.0-102.0); Monocytes Absolute Auto 0.58 K/mm3 (0.10-0.90); Monocytes Percent Auto 11.1 % (2.0-11.0); Neutrophils Absolute Auto 2.9 K/mm3 (1.7-7.2); Platelet Count Result 369 K/mm3 (150-420); Red Blood Count 5.25 M/mm3 (4.20-5.40); Red Cell Distribution Width 18.1 % (11.6-14.4); White Blood Count 5.2 K/mm3 (4.8-10.8)
[2022-05-24 11:34] LABS: Iron 15 ug/dL (50-170); Percent Iron Saturation 3 % (12-57); Vitamin B12 947 pg/mL (193-986)
== END 2022-05-24 10:22 | disposition home or self-care (01) ==
LOC: CHSLAB 10:23
PROVIDERS: PCP Internal Medicine; Visit Provider Physician Assistant
DX: D64.9 Anemia, unspecified (principal)
CPT/HCPCS: 36415; 82607; 83540; 83550; 85025

== ENCOUNTER 2022-07-22 09:59 | Outpatient (CLI) | payer MEDICARE, SELFPAY ==
[2022-07-22 10:33] LABS: Creatinine Urine 70.42 mg/dL (40-278); MALB Creatinine Ratio 27.4 mg/g (0-30); Microalbumin Urine Random 19.3 mg/L
[2022-07-22 10:34] LABS: Hemoglobin A1C 7.6 % (<5.7)
[2022-07-22 11:02] LABS: Anion Gap 7 mmol/L (8-16); Blood Urea Nitrogen 23 mg/dL (7-18); Calcium 9.6 mg/dL (8.5-10.1); Carbon Dioxide 32 mmol/L (21-32); Chloride 104 mmol/L (98-108); Cholesterol 169 mg/dL (0-200); Estimated Glomerular Filt Rate 51; Free T4 Free Thyroxine 0.94 ng/dL (0.76-1.46); Glucose 200 mg/dL (70-99); HDL Direct 75 mg/dL (40-60); LDL Cholesterol Calculated 75 mg/dL (<130); Osmolality Calculated 305 mOsm/kg (285-295); Potassium 4.7 mmol/L (3.5-5.1); Sodium 143 mmol/L (136-145); Thyroid Stimulating Hormone 2.16 uIU/mL (0.36-3.74); Triglycerides 94 mg/dL (0-150)
[2022-07-26 02:13] LABS: Fructosamine 345 umol/L (205-285)
== END 2022-07-22 10:00 | disposition home or self-care (01) ==
LOC: CHSLAB 10:02
PROVIDERS: PCP Internal Medicine; Visit Provider Internal Medicine
DX: E10.65 Type 1 diabetes mellitus with hyperglycemia (principal); M81.0 Age-related osteoporosis without current pathological fracture
CPT/HCPCS: 36415; 80048; 80061; 82043; 82985; 83036; 84439; 84443